=== PATIENT | female | born 1990 | race Caucasian/White ===

== ENCOUNTER → 2017-04-25 18:27 | Outpatient (CLI) | payer OTHER, SELFPAY ==
[2017-04-25 21:31] LABS: Chlamydia Trachomatis by PCR Negative (Negative); Neisserai gonorrhoeae by PCR Negative (Negative); Probe Check PASS; Sample Adequacy Control PASS; Specimen Processing Control PASS
== END ==
PROVIDERS: Visit Provider Obstetrics & Gynecology
DX: Z34.90 Encounter for supervision of normal pregnancy, unspecified, unspecified trimester (principal)
CPT/HCPCS: 87086; 87088; 87491; 87591

== ENCOUNTER → 2017-04-27 10:36 | Outpatient (CLI) | payer OTHER, SELFPAY ==
[2017-04-27 11:26] LABS: Absolute Lymphocyte Count 1.67 X10^3/ul (0.83-4.51); Absolute Neutrophil Count 4.8 X10^3/uL (2.0-7.7); Basophil# 0.01 X10^3/uL; Basophil% 0.1 % (0-1); Eosinophil# 0.04 X10^3/uL; Eosinophils% 0.6 % (0-5); Hematocrit 39.9 % (37-47); Hemoglobin 13.5 g/dl (12.0-15.0); Lymphocyte # 1.67 X10^3/ul (4.0); Lymphocyte % 23.9 % (19-41); Mean Corp Hgb Conc 33.8 g/gl (32-36); Mean Corpuscular Hgb 29.3 pg (27.0-32.0); Mean Corpuscular Volume 86.6 fL (81-99); Mean Platelet Vol. 10.8 fl (6.2-12.0); Monocyte# 0.46 X10^3/uL; Monocyte% 6.6 % (0-10); Neutrophil # 4.79 X10^3/uL (2.7-7.7); Neutrophil % 68.7 % (47-70); Platelet Count 209 K/mm3 (150-450); RBC Distribution Width CV 12.4 % (11.6-14.6); RBC Distribution Width SD 38.8 fl (35.1-43.9); Red Blood Count 4.61 M/mm3 (4.2-5.4)
[2017-04-27 11:27] LABS: POSITIVE COUNT NO; POSITIVE DIFFERENTIAL NO; POSITIVE MORPHOLOGY NO
[2017-04-27 12:41] LABS: HIV - WCH Non-Reactive (Nonreactive); Rubella IgG 376.1 IU/mL
[2017-04-29 08:52] LABS: HEPATITIS B SURFACE AG Negative (Negative)
[2017-05-04 02:54] LABS: Rapid Plasmin Reagin (RPR) NONREACTIVE (NONREACTIVE)
== END ==
PROVIDERS: Family Provider Family Medicine; PCP Family Medicine; Visit Provider Obstetrics & Gynecology
DX: Z34.90 Encounter for supervision of normal pregnancy, unspecified, unspecified trimester (principal)
CPT/HCPCS: 36415; 85025; 86592; 86703; 86762; 86850; 86900; 87340

== ENCOUNTER → 2017-07-06 18:20 | Outpatient (CLI) | payer OTHER, SELFPAY ==
--- NOTE | 2017-07-06 18:24 | US_ITS ---
STUDY: SECOND AND THIRD TRIMESTER OBSTETRICAL ULTRASOUND REASON FOR EXAM: Female, 26 years old. anatomy. LMP: 02/22/2017 TECHNIQUE: Transabdominal PRIOR ULTRASOUND: None. FINDINGS: There is a single intrauterine fetus. The fetus is in a cephalic presentation. There is demonstrated cardiac activity with a heart rate of 153 bpm. There is a normal amniotic fluid volume. The largest amniotic fluid pocket measures 5.8 x 3.5 cm. The placenta is posterior and not low lying. There are Grade 0 placental changes. The cervix measures 3.1 cm in length. The adnexal regions are not visualized. BIOMETRY: BPD: 4.4 cm: 19 weeks, 3 days HC: 16.1 cm: 19 weeks, 0 days AC: 13.9 cm: 18 weeks, 5 days FL: 2.7 cm: 18 weeks, 4 days CI: 84 FL/AC: 21 HC/AC: 1.23 age by current US: 19 weeks, 0 days. JASBIR by current US: 11/30/2017. Estimated weight: 250 grams, +/- 37 grams, 20 %. Age by LMP: 19 weeks, 1 days. JASBIR by LMP: 11/29/2017. ANATOMY: Gender: Male Cranium: Normal lateral ventricles. Normal choroid plexus. Normal cerebellum. Normal cisterna magna. Normal face, nose and lips. Chest: Normal 4-chamber heart. Echogenic focus. Abdomen/Pelvis: Normal diaphragm. Normal stomach. Normal abdominal wall. Normal cord insertion. Normal 3 vessel cord. Normal kidneys. Normal bladder. Spine: Normal cervical spine. Normal thoracic spine. Normal lumbar spine. Normal sacrum. Extremities: Normal bilateral upper extremities. Normal bilateral lower extremities. US/OB Anatomy Scan IMPRESSION: Single living male intrauterine fetus of 19 weeks and 0 days with an JASBIR of 11/30/2017. Normal quantity of amniotic fluid. Grade 0 posterior and not low lying placenta. Cervical length of 3.1 cm. A small echogenic focus of the heart usually a transient finding of no significance. Otherwise, normal anatomy. Electronically Signed: Anayeli Bergman MD at 20:52 EDT , Service support ,
== END ==
PROVIDERS: Family Provider Family Medicine; PCP Family Medicine; Visit Provider Obstetrics & Gynecology
DX: Z34.90 Encounter for supervision of normal pregnancy, unspecified, unspecified trimester (principal)
CPT/HCPCS: 76805

== ENCOUNTER → 2017-09-10 15:25 | Outpatient (CLI) | payer OTHER, SELFPAY ==
[2017-09-10 16:43] LABS: Absolute Lymphocyte Count 1.68 X10^3/ul (0.83-4.51); Absolute Neutrophil Count 6.9 X10^3/uL (2.0-7.7); Basophil# 0.01 X10^3/uL; Basophil% 0.1 % (0-1); Eosinophil# 0.06 X10^3/uL; Eosinophils% 0.7 % (0-5); Hematocrit 35.7 % (37-47); Hemoglobin 12.2 g/dl (12.0-15.0); Lymphocyte # 1.68 X10^3/ul (4.0); Lymphocyte % 18.3 % (19-41); Mean Corp Hgb Conc 34.2 g/gl (32-36); Mean Corpuscular Hgb 30.2 pg (27.0-32.0); Mean Corpuscular Volume 88.4 fL (81-99); Mean Platelet Vol. 11.2 fl (6.2-12.0); Monocyte% 5.4 % (0-10); Neutrophil # 6.93 X10^3/uL (2.7-7.7); Neutrophil % 75.3 % (47-70); Platelet Count 178 K/mm3 (150-450); RBC Distribution Width CV 12.8 % (11.6-14.6); RBC Distribution Width SD 40.3 fl (35.1-43.9); Red Blood Count 4.04 M/mm3 (4.2-5.4); White Blood Count 9.2 K/mm3 (4.4-11.0)
[2017-09-10 16:45] LABS: POSITIVE COUNT NO; POSITIVE DIFFERENTIAL NO; POSITIVE MORPHOLOGY NO
[2017-09-10 16:52] LABS: Glucose Challenge Gest 1H 50g 136 mg/dL (70-140)
== END ==
PROVIDERS: Family Provider Family Medicine; PCP Family Medicine; Visit Provider Obstetrics & Gynecology
DX: Z34.90 Encounter for supervision of normal pregnancy, unspecified, unspecified trimester (principal)
CPT/HCPCS: 36415; 82950; 85025

== ENCOUNTER → 2017-09-14 09:49 | Outpatient (CLI) | payer OTHER, SELFPAY ==
[2017-09-14 11:08] LABS: Glucose GTT-Gestation. Fasting 69 mg/dL (<105)
[2017-09-14 12:39] LABS: Glucose GTT-Gestational 1 Hr 142 mg/dL (<190)
[2017-09-14 13:01] LABS: Glucose GTT-Gestational 2 Hr 139 mg/dL (<165)
[2017-09-14 14:05] LABS: Glucose GTT-Gestational 3 Hr 103 L (<145)
== END ==
PROVIDERS: Nurse Practitioner Women's Health; Family Provider Family Medicine; PCP Family Medicine; Visit Provider Obstetrics & Gynecology
DX: O99.810 Abnormal glucose complicating pregnancy (principal); Z3A.00 Weeks of gestation of pregnancy not specified
CPT/HCPCS: 36415; 82951; 82952

== ENCOUNTER 2017-11-16 09:41 | Outpatient (CLI) | payer OTHER, SELFPAY ==
[2017-11-16 10:18] VITALS: BMI 39.6
[2017-11-16] MEDS: 0.9% Saline Lock 10 ML Syringe IV (10:40)
[2017-11-16 10:55] LABS: Hematocrit 38.2 % (37-47); Hemoglobin 12.5 g/dl (12.0-15.0); Mean Corp Hgb Conc 32.7 g/gl (32-36); Mean Corpuscular Hgb 28.3 pg (27.0-32.0); Mean Corpuscular Volume 86.4 fL (81-99); Mean Platelet Vol. 11.2 fl (6.2-12.0); Platelet Count 178 K/mm3 (150-450); RBC Distribution Width CV 12.7 % (11.6-14.6); RBC Distribution Width SD 40.3 fl (35.1-43.9); Red Blood Count 4.42 M/mm3 (4.2-5.4); White Blood Count 8.7 K/mm3 (4.4-11.0)
[2017-11-16 10:56] LABS: Scan Indicated on CBC? Y/N NO
[2017-11-16 11:26] LABS: Partial Thromboplast Time 25.8 Seconds (24.1-36.2); Prothrombin Time (Protime)PT. 12.7 SECONDS (11.7-14.9)
[2017-11-16 11:37] LABS: AST(SGOT) 13 U/L (15-37); Alanine Aminotransfer ALT/SGPT 16 U/L (13-56); Creatinine, Serum 0.58 mg/dL (0.55-1.02); EST Glomerular Filtration Rate 131 mL/min (>60); Est Glom Filt Rate - Afr Amer 159 mL/min (>60); Uric Acid 4.1 mg/dL (2.6-6.0)
[2017-11-16 12:05] LABS: Protein, Urine (Random) < 6.0 mg/dL (<11.9)
--- NOTE | 2017-11-22 20:32 | OB.TRI.NOTE ---
- Problem List (1) False labor Status: Acute History of Present Illness Date of Service: 11/16/17 Reason For Visit: INT ORDERS Date of Service: 11/16/17 History of Present Illness: co ctx Allergies No Known Allergies Allergy (Verified 11/16/17 10:19) - Pertinent Past Medical History Surgical History: Past Surgical History (Last Reviewed 11/16/17 @ 08:52 by Rajni Thomas) wisdom teeth NST - FHR Rate Baby A Baseline: 140 Variability:: Moderate Accelerations:: 15 x 15 Decelerations:: None NST Reactive:: Yes FHR Category:: Category I Uterine Activity:: Irregular Impression/Plan False labor no cervical change DC home labor precautions
== END 2017-11-16 12:35 | disposition home or self-care (01) ==
LOC: WPOUT 09:43 → WP 10:17
PROVIDERS: Family Provider Family Medicine; PCP Family Medicine; Visit Provider Obstetrics & Gynecology
DX: O47.9 False labor, unspecified (principal); Z3A.00 Weeks of gestation of pregnancy not specified
CPT/HCPCS: 36415; 59025; 59050; 82565; 82570; 84156; 84450; 84460; 84550; 85027; 85610; 85730; 99218; A4216; G0378

== ENCOUNTER → 2017-11-16 14:52 | Outpatient (CLI) | payer OTHER, SELFPAY ==
[2017-11-16 17:13] LABS: Group B Strep DNA By PCR Negative (Negative); Internal Control PASS; Probe Check PASS; Specimen Processing Control PASS
== END ==
PROVIDERS: Visit Provider Obstetrics & Gynecology
DX: Z34.90 Encounter for supervision of normal pregnancy, unspecified, unspecified trimester (principal)
CPT/HCPCS: 87081; 87653

== ENCOUNTER → 2017-11-23 12:45 | Outpatient (CLI) | payer OTHER, SELFPAY ==
[2017-11-23 13:36] LABS: Protein, Urine (Random) 18.8 mg/dL (<11.9); Protein:Creat Ratio 113 mg/g CRE (0-200)
== END ==
PROVIDERS: Family Provider Family Medicine; PCP Family Medicine; Visit Provider Nurse Practitioner Women's Health
DX: O16.3 Unspecified maternal hypertension, third trimester (principal); Z3A.00 Weeks of gestation of pregnancy not specified
CPT/HCPCS: 82570; 84156

== ENCOUNTER 2017-11-30 13:55 | Inpatient (IN) | payer OTHER, SELFPAY ==
[2017-11-30 10:32] VITALS: BMI 40.3
[2017-11-30 11:07] LABS: Protein, Urine (Random) 15.2 mg/dL (<11.9); Protein:Creat Ratio 148 mg/g CRE (0-200)
[2017-11-30] MEDS: Lactated Ringers 1,000 ML 50 ML IV (11:20)
[2017-11-30 11:41] LABS: Hemoglobin 12.5 g/dl (12.0-15.0); Mean Corp Hgb Conc 33.8 g/gl (32-36); Mean Corpuscular Hgb 29.1 pg (27.0-32.0); Mean Platelet Vol. 11.5 fl (6.2-12.0); Platelet Count 171 K/mm3 (150-450); RBC Distribution Width CV 12.8 % (11.6-14.6); RBC Distribution Width SD 39.3 fl (35.1-43.9); Scan Indicated on CBC? Y/N NO; White Blood Count 9.1 K/mm3 (4.4-11.0)
[2017-11-30 11:55] LABS: International Normalized Ratio 0.9; Prothrombin Time (Protime)PT. 12.6 SECONDS (11.7-14.9)
[2017-11-30 11:56] LABS: Partial Thromboplast Time 24.3 Seconds (24.1-36.2)
[2017-11-30 11:58] LABS: AST(SGOT) 18 U/L (15-37); Alanine Aminotransfer ALT/SGPT 16 U/L (13-56); Creatinine, Serum 0.63 mg/dL (0.55-1.02); EST Glomerular Filtration Rate 120 mL/min (>60); Est Glom Filt Rate - Afr Amer 145 mL/min (>60); Uric Acid 4.7 mg/dL (2.6-6.0)
[2017-11-30] MEDS: 0.9% Normal Saline 100 ML IV.SOLN. INTRA-UTER (15:35)
[2017-11-30] MEDS: Oxytocin 30 units/NS 500 ml 30 UNITS/500 ML IV.SOLN IV (15:37)
--- NOTE | 2017-11-30 19:03 | HP.PCM_ITS ---
- Problem List (1) Gestational hypertension Status: Acute (2) Status: Acute Qualifiers: Comment: (3) Abnormal glucose complicating childbirth Status: Acute Comment: Normal 3 hr GTT, Needs GBS at next appt. (4) Echogenic focus of heart of fetus affecting antepartum care of mother Status: Acute Qualifiers: Comment: offered NIPT screening - declined (5) Supervision of normal Status: Acute Qualifiers: Comment: PRR JASBIR 11/29/17 boy David Sushil History Date of Admission: 11/30/17 Final JASBIR: 11/29/17 Gestational age: 40 Weeks and 1 Days History of this : This is a 27 year-old, at 40 weeks gestational age presents for IOL secondary to gestational hypertension. she had elevated bps in the office today but negative proteinuria and she is asymptomatic. she denies any vb or lof, admits good fm. She denies any regualr ctx, no headaches or blurry vision. Surgical History: Surgical History (Last Reviewed 11/30/17 @ 09:16 by Rajni Thomas) wisdom teeth Allergies No Known Allergies Allergy (Verified 11/30/17 09:17) Home Medications: Home Medications vitamin,calcium,hfpwctqs-nugp-wnzgk acid tablet 2 tab PO QDAY 04/25/17 Smoking Status: Never smoker Alcohol: None Number of Fetus(es): 1 Heart Tracin mod gillian reactive no decels cat I TOCO Analysis: irregular History Past Pregnancies: Past Pregnancies Delivery Date Name GA/Weeks Outcome Route Weight Infant Gender Labor Length Anesthesia Delivery Location Provider FOB Labs: Mom's Problem List Problem Status Onset Code Gestational hypertension Acute O13.9 Mom's Labs & Results 11/30/17 11/30/17 11/30/17 10:30 11:20 11:20 WBC 9.1 RBC 4.30 Hgb 12.5 Hct 37.0 MCV 86.0 MCH 29.1 MCHC 33.8 RDW 12.8 RDW Differential 39.3 Plt Count 171 MPV 11.5 PT INR APTT Creatinine 0.63 Estim Creat Clear Calc 120.70 Est GFR (MDRD) Af Amer 145 Est GFR (MDRD) Non-Af 120 Uric Acid 4.7 AST 18 ALT 16 U Random Total Protein 15.2 H Urine Creatinine 103.00 Protein/Creatinin Ratio 148 Blood Type Antibody Screen 11/30/17 11/30/17 11:20 11:35 WBC RBC Hgb Hct MCV MCH MCHC RDW RDW Differential Plt Count MPV PT 12.6 INR 0.9 APTT 24.3 Creatinine Estim Creat Clear Calc Est GFR (MDRD) Af Amer Est GFR (MDRD) Non-Af Uric Acid AST ALT U Random Total Protein Urine Creatinine Protein/Creatinin Ratio Blood Type A POSITIVE Antibody Screen NEGATIVE Course Did the patient receive Yes care? Labs Blood Type: A RH: POSITIVE RPR/VDRL/Syphilis Nonreactive Rubella status Immune HbSAg Negative Date Done: 04/27/17 Chlamydia Negative Gonorrhea Negative HIV/AIDS Non-Reactive Group B Strep: Negative Current Obstetrical History Gestational Diabetes No: abnormal 1 hr gtt, normal 3 hr gtt Incompetent Cervix No Infertility No IUGR No Macrosomia No Hypertension/Pre-eclampsia Yes Placenta Previa/Abruption No PTL/PROM No Uterine anomaly No Oligohydramnios No Polyhydramnios No Multiple gestation No Past Medical History Asthma No Diabetes No Hypertension No Heart disease No Mitral valve prolapse No Neurologic/Seizure disorder/ No Migraines Kidney disease No Liver disease No Varicosities No Clotting disorders/Hx of DVT No Thyroid Dysfunction No Other medical diseases No Psychiatric disorders No Major trauma No Abnormal PAP smear No Sleep apnea No Mammogram in the last 2 years No Social History Marital Status: Alleged father Sushil Jim Hx Smoking No Smoking Status Never smoker Expected Infant Delivery Method: Spontaneous Vaginal Review of Systems Constitutional: Denies: Fever, Malaise Eyes: Denies: Blurred vision, Vision Change HEENT: Denies: Head Aches, Visual Changes Cardiovascular: Denies: Chest Pain, Palpitations Respiratory: Denies: Cough, Shortness of Breath, Wheezing Gastrointestinal: Denies: Abdominal Pain, Diarrhea, Nausea, Vomiting Genitourinary: Denies: Dysuria, Hematuria Musculoskeletal: Denies: Joint Pain, Muscle pain Skin: Denies: Lesions, Rash Neurological: Denies: Blurred vision, Focal weakness, Headaches Psychiatric: Denies: Anxiety, Depression Endocrine: Denies: Heat/ Cold Intolerance Hematologic/ Lymphatic: Denies: Easy Bruising, Easy Bleeding Physical Exam General: Alert, Cooperative, No apparent distress HEENT: Atraumatic, Normocephalic. Negative for: Thyromegaly, Lymphadenopathy Cardiovascular: Regular rate Lungs: Normal air movement Abdomen: Soft, Non Tender, Gravid Neurological: Deep Tendon Reflexes 2+/4 and Symmetrical, Neuro grossly intact. Negative for: Clonus LEASE ADMINISTRATION ANALYST: Normal external genitalia. Negative for: Vulvar lesions Estimated gestational size: Appropriate for gestational size Presentation: Cephalic Assessment/Plan All Active Problems (Last Reviewed 11/30/17 @ 09:16 by Rajni Thomas) False labor (Acute) Gestational hypertension (Acute) (Acute) Abnormal glucose complicating childbirth (Acute) Echogenic focus of heart of fetus affecting antepartum care of mother (Acute) Supervision of normal (Acute) This is a 27 year-old, at 40 weeks gestational age presents iol gestational hypertension Patient presents IOL, plan expectant management for , pitocin/AROM PRN when able Pain management: plans epidural. GBS neg. Management of any complications: ghtn I have reviewed the [facility] and made any clinically relevant updates.
[2017-12-01] MEDS: Lactated Ringers 1,000 ML 50 ML IV ×3 (00:20→06:16)
[2017-12-01] MEDS: fentaNYL-bupivacaine (epidural) 100 ML BAG EPIDURAL ×2 (01:09→06:13)
[2017-12-01] MEDS: Ondansetron 4 MG/2 ML Vial IV (08:24)
[2017-12-01] MEDS: Oxytocin 30 units/NS 500 ml 30 UNITS/500 ML IV.SOLN 334 UNITS IV (09:22)
[2017-12-01] MEDS: Oxytocin 30 units/NS 500 ml 30 UNITS/500 ML IV.SOLN 167 UNITS IV (09:52)
--- NOTE | 2017-12-01 11:56 | PCM.OB.VAG ---
- Problem List (1) Gestational hypertension Status: Acute (2) Status: Acute Qualifiers: Comment: (3) Abnormal glucose complicating childbirth Status: Acute Comment: Normal 3 hr GTT, Needs GBS at next appt. (4) Echogenic focus of heart of fetus affecting antepartum care of mother Status: Acute Qualifiers: Comment: offered NIPT screening - declined (5) Supervision of normal Status: Acute Qualifiers: Comment: PRR JASBIR 11/29/17 boy David Sushil Vaginal Delivery Maternal Presentation: Medically Indicated Induction iol ghtn Method of Induction: Pitocin, [facility] Reason for Induction: Gestational Hypertension Amniotic Membrane Rupture Type: Artificial Amniotic Fluid Description: Clear Final JASBIR: 11/29/17 Gestational age: 40 Weeks and 2 Days Date of Procedure: 12/01/17 Pre-Operative Diagnosis: iol ghtn Post-Operative Diagnosis: same Surgery/ Procedure Performed: Spontaneous Vaginal Delivery Type of Anesthesia: Epidural Description of Procedure: Patient began pushing and delivered the head in the YARA presentation. The head was delivered atraumatically and a loose nuchal cord ?1 was identified and easily reduced over the infant's head. The anterior and posterior shoulders delivered without complication followed by the rest of the and the infant was placed on the maternal abdomen. Delayed cord clamping was employed for approximately 60 seconds. Cord was clamped and cut and gentle traction was applied to the cord and the placenta delivered spontaneously immediately following it was noted to be intact with three-vessel cord. The perineum and vagina were inspected and noted to have a first degree laceration repaired in the usual fashion with 3-0 rapide. EBL was 300 cc. Patient and tolerated delivery well. Presentation: LIDYA, ROP Placental Delivery Description: Spontaneous Placenta Disposition: [facility] Cord Vessel Description: 3 Vessels Cord Entanglement: Around neck x 1, loose Estimated Blood Loss: 300 A gender: Male Episiotomy Description: None Laceration: Perineal Extension/lac, 1st degree Medications given after delivery: IV Pitocin Complications: None
[2017-12-01] MEDS: Naproxen 250 MG Tablet PO (15:15)
[2017-12-01] MEDS: 0.9% Saline Lock 10 ML Syringe IV (15:16)
--- NOTE | 2017-12-01 15:28 | NURSING ---
1500 Up to the bathroom with assistance, normal gait, steady on feet. Voids 300ml, lochia mod rubra. Perineum remains edematous, soft. New ice pack applied. Shannon care done per patient after instructions. Returns to wheelchair and transferred to 5. Tolerated well.
[2017-12-01 16:00] VITALS: BP 141/85; PULSE 99; RESP 16; TEMP 37.3
[2017-12-01 20:53] VITALS: BP 121/65; PULSE 99; RESP 18; TEMP 37.1; O2SAT 97
[2017-12-01 23:50] VITALS: BP 130/67; PULSE 90; RESP 16; TEMP 37.2; O2SAT 96
--- NOTE | 2017-12-02 03:37 | PCM.DCVAG ---
Discharge Diet: No Restrictions Discharge Activity: Return to Normal Activity, May not drive while taking narcotic pain medications., May Shower May resume sexual activity in: 4-6 weeks Call your doctor if your incision/area has: Continuous Slow Oozing, Sudden Increased Bleeding, Increased Pain/ Swelling, Increased Redness, Foul Smelling Discharge Additional Instructions: If you experience any of the following, contact your healthcare provider. Bleeding that soaks a pad every hour for 2 hours Fever 100.4 or higher Unrelieved incision or abdominal pain Swelling, redness, discharge or bleeding from your incision or episiotomy site Your incision begins to separate Problems urinating (including inability to urinate or burning while urinating). Visual changes Severe headache Flu-like symptoms Pain or redness in one of both of your breasts Pain, warmth, tenderness or swelling in your legs, especially the calf area Frequent nausea and vomiting Symptoms of depression or anxiety If you experience any of the following, call 911 or go to the nearest Emergency Room. Chest pain Problems breathing Seizure activity Partial or complete paralysis of a body part, slurred speech, weakness or drooping of the face, or a sudden inability to walk or hold your balance Allergies/Adverse Reactions: Allergies No Known Allergies Allergy (Verified 11/30/17 09:17) Medications to take at Discharge vitamin,calcium,wvpkxzsd-nhxh-zrqcv acid tablet 2 tab PO QDAY 04/25/17 Please Follow Up With: Shira Garrido MD - [phone] When: Call to make an appointment with your doctor in 6 weeks. If you had elevated Blood pressure or 4th degree laceration you will need to be seen in 2 weeks. Primary Care Physician: Kaley Cole DO [Primary Care Provider] - Test Results: Test results from this visit will be discussed in further detail at your follow-up appointment, if applicable.
--- NOTE | 2017-12-02 03:38 | DCINST_ITS ---
Discharge Diet: No Restrictions Discharge Activity: Return to Normal Activity, May not drive while taking narcotic pain medications., May Shower May resume sexual activity in: 4-6 weeks Call your doctor if your incision/area has: Continuous Slow Oozing, Sudden Increased Bleeding, Increased Pain/ Swelling, Increased Redness, Foul Smelling Discharge Additional Instructions: If you experience any of the following, contact your healthcare provider. * Bleeding that soaks a pad every hour for 2 hours * Fever 100.4 or higher * Unrelieved incision or abdominal pain * Swelling, redness, discharge or bleeding from your incision or episiotomy site * Your incision begins to separate * Problems urinating (including inability to urinate or burning while urinating). * Visual changes * Severe headache * Flu-like symptoms * Pain or redness in one of both of your breasts * Pain, warmth, tenderness or swelling in your legs, especially the calf area * Frequent nausea and vomiting * Symptoms of depression or anxiety If you experience any of the following, call 911 or go to the nearest Emergency Room. * Chest pain * Problems breathing * Seizure activity * Partial or complete paralysis of a body part, slurred speech, weakness or drooping of the face, or a sudden inability to walk or hold your balance Allergies/Adverse Reactions: Allergies No Known Allergies Allergy (Verified 11/30/17 09:17) Medications to take at Discharge vitamin,calcium,szjwicmi-axba-vvrcq acid tablet 2 tab PO QDAY 04/25/17 Please Follow Up With: Shira Garrido MD - [phone] When: Call to make an appointment with your doctor in 6 weeks. If you had elevated Blood pressure or 4th degree laceration you will need to be seen in 2 weeks. Primary Care Physician: Kaley Cole DO [Primary Care Provider] - Test Results: Test results from this visit will be discussed in further detail at your follow- up appointment, if applicable.
[2017-12-02 04:35] VITALS: BP 138/88; PULSE 89; RESP 18; TEMP 36.8; O2SAT 94
--- NOTE | 2017-12-02 07:28 | PCM.PN.OB ---
Patient Problems: Active and Suspected Problems (Last Reviewed 11/30/17 @ 09:16 by Rajni Thomas) Gestational hypertension (Acute) Subjective: doing well no ocmplaints - Physical Exam General: Alert, Oriented x3 Vital Signs Temp Pulse Resp BP Pulse Ox 98.3 F 89 18 138/88 H 94 12/02/17 04:35 12/02/17 04:35 12/02/17 04:35 12/02/17 04:35 12/02/17 04:35 Oxygen Delivery Method Room Air Weight: 242 lb 4.608 oz Body Mass Index (BMI) 40.3 Intake and Output for Last 24 Hours 11/30/17 12/01/17 12/02/17 23:59 23:59 23:59 Intake Total 1055 / 1055 Output Total 775 / 775 1000 / 1000 Balance 280 / 280 -1000 / -1000 Medical Necessity - Tobacco Use Smoking Status: Never smoker Assessment/Plan All Active Problems (Last Reviewed 11/30/17 @ 09:16 by Rajni Thomas) False labor (Acute) Gestational hypertension (Acute) (Acute) Abnormal glucose complicating childbirth (Acute) Echogenic focus of heart of fetus affecting antepartum care of mother (Acute) Supervision of normal (Acute) s/p routine care ghtn nl bps
[2017-12-02 08:20] VITALS: BP 137/90; PULSE 95; RESP 16; TEMP 36.9; O2SAT 98
[2017-12-02] MEDS: Naproxen 250 MG Tablet PO (09:55)
[2017-12-02] MEDS: Prenatal Vits Tablet 2 TABLET PO (09:56)
[2017-12-02 13:24] VITALS: BP 120/84; PULSE 79; RESP 18; TEMP 36.9; O2SAT 99
[2017-12-02 19:45] VITALS: BP 143/83; PULSE 85; RESP 18; TEMP 36.5
[2017-12-03 02:00] VITALS: BP 150/87; PULSE 89; RESP 17; TEMP 36.7
--- NOTE | 2017-12-03 08:12 | PCM.PN.OB ---
Patient Problems: Active and Suspected Problems (Last Reviewed 11/30/17 @ 09:16 by Rajni Thomas) Gestational hypertension (Acute) Subjective: Doing well. No CP, SOB. - Physical Exam General: Alert, Oriented x3 Abdomen: Soft, Non Tender, - - FF below U Vital Signs Temp Pulse Resp BP Pulse Ox 98.0 F 89 17 150/87 H 99 12/03/17 02:00 12/03/17 02:00 12/03/17 02:00 12/03/17 02:00 12/02/17 13:24 Oxygen Delivery Method Room Air Weight: 242 lb 4.608 oz Body Mass Index (BMI) 40.3 Intake and Output for Last 24 Hours 12/01/17 12/02/17 12/03/17 23:59 23:59 23:59 Output Total 1000 / 1000 Balance -1000 / -1000 Medical Necessity - Tobacco Use Smoking Status: Never smoker Assessment/Plan All Active Problems (Last Reviewed 11/30/17 @ 09:16 by Rajni Thomas) False labor (Acute) Gestational hypertension (Acute) (Acute) Abnormal glucose complicating childbirth (Acute) Echogenic focus of heart of fetus affecting antepartum care of mother (Acute) Supervision of normal (Acute) PPD#2: Routine care. . Home today.
[2017-12-03 09:00] VITALS: BP 126/83; PULSE 80; RESP 16; TEMP 36.8; O2SAT 98
[2017-12-03 13:20] VITALS: BP 126/93; PULSE 96; RESP 16; TEMP 36.7; O2SAT 93
== END 2017-12-03 13:30 | disposition home or self-care (01) | DRG 775 ==
LOC: WPOUT 13:57
PROVIDERS: Admitting Provider Obstetrics & Gynecology; Family Provider Family Medicine; PCP Family Medicine; Referring Provider Obstetrics & Gynecology; Visit Provider Obstetrics & Gynecology
DX: O13.4 Gestational [pregnancy-induced] hypertension without significant proteinuria, complicating childbirth (principal); O99.814 Abnormal glucose complicating childbirth; Z37.0 Single live birth; Z3A.40 40 weeks gestation of pregnancy; O69.81X0 Labor and delivery complicated by cord around neck, without compression, not applicable or unspecified; O70.0 First degree perineal laceration during delivery
CPT/HCPCS: 59025; 59050; 82565; 82570; 84156; 84450; 84460; 84550; 85027; 85610; 85730; 86850; 86900; 99218; J7120; 90686; A4216; G0378; J2405

== ENCOUNTER → 2017-12-08 14:58 | Outpatient (CLI) | payer OTHER, SELFPAY | PROVIDERS: Family Provider Family Medicine; PCP Family Medicine; Referring Provider Physician Assistant; Visit Provider Physician Assistant | DX: R21 Rash and other nonspecific skin eruption (principal) | CPT/HCPCS: 87252 ==

== ENCOUNTER → 2019-12-31 10:05 | Outpatient (CLI) | payer BC, SELFPAY ==
[2019-12-31 09:08] VITALS: BMI 33.1
[2019-12-31 10:49] LABS: Absolute Lymphocyte Count 1.32 X10^3/uL (0.83-4.51); Absolute Neutrophil Count 5.6 X10^3/uL (2.0-7.7); Basophil# 0.01 X10^3/uL; Basophil% 0.1 % (0-1); Eosinophil# 0.02 X10^3/uL; Eosinophils% 0.3 % (0-5); Hematocrit 39.5 % (37-47); Hemoglobin 12.7 g/dL (12.0-15.0); Lymphocyte # 1.32 X10^3/ul (4.0); Lymphocyte % 17.8 % (19-41); Mean Corp Hgb Conc 32.2 g/dL (32-36); Mean Corpuscular Hgb 28.8 pg (27.0-32.0); Mean Corpuscular Volume 89.6 fL (81-99); Mean Platelet Vol. 10.7 fl (6.2-12.0); Monocyte# 0.42 X10^3/uL; Monocyte% 5.7 % (0-10); NRBC Flagged by Analyzer 0 % (0-5); Neutrophil # 5.61 X10^3/uL (2.7-7.7); Neutrophil % 75.8 % (47-70); Platelet Count 204 K/mm3 (150-450); RBC Distribution Width CV 12.2 % (11.6-14.6); RBC Distribution Width SD 40.4 fl (35.1-43.9); Red Blood Count 4.41 M/mm3 (4.2-5.4); White Blood Count 7.4 K/mm3 (4.4-11.0)
[2019-12-31 11:25] LABS: ALB/GLOB Ratio 0.9 RATIO (0.9-2.4); AST(SGOT) 11 U/L (15-37); Alanine Aminotransfer ALT/SGPT 20 U/L (13-56); Albumin, Serum 3.5 g/dL (3.2-5.0); Alkaline Phosphatase 80 U/L (45-117); Anion Gap 5 (5-15); BUN 8 mg/dL (7-18); BUN/Creat Ratio 12.2 RATIO (10-20); Calcium,Total 8.8 mg/dL (8.5-10.1); Chloride 105 mmol/L (98-107); Creatinine, Serum 0.66 mg/dL (0.55-1.02); EST Glomerular Filtration Rate 113 mL/min (>60); Est Glom Filt Rate - Afr Amer 137 mL/min (>60); Globulin 4.1 g/dL (2.2-4.2); Glucose 99 mg/dL (74-106); Glucose Challenge Gest 1H 50g 99 mg/dL (70-140); Potassium 3.6 mmol/L (3.5-5.1); Protein, Total 7.6 g/dL (6.4-8.2); Sodium Level 137 mmol/L (136-145)
[2019-12-31 12:01] LABS: HIV - WCH Non-Reactive (Nonreactive); Hepatitis B Surface Antigen Non-Reactive (Nonreactive); Hepatitis C Antibody Non-Reactive (Nonreactive)
[2019-12-31 15:43] LABS: Protein, Urine (Random) 15.5 mg/dL (<11.9); Protein:Creat Ratio 138 mg/g CRE (0-200)
[2019-12-31 16:15] LABS: Amphetamine Urine VISTA NEGATIVE (<1000 ng/mL); Barbiturate Urine VISTA NEGATIVE (< 200 ng/mL); Benzodiazepine Urine VISTA NEGATIVE (< 200 ng/mL); Cocaine Urine VISTA NEGATIVE (< 300 ng/mL); Ecstacy Urine VISTA NEGATIVE (< 500 ng/mL); Methadone Urine VISTA NEGATIVE (< 300 ng/mL); PCP Urine VISTA NEGATIVE (< 25 ng/mL); THC Urine VISTA NEGATIVE (< 50 ng/mL); Vista UDS pH Range 7
[2020-01-01 01:11] LABS: Rapid Plasmin Reagin (RPR) NONREACTIVE (NONREACTIVE)
[2020-01-03 20:07] LABS: Chlamydia By Nucleic Acid AMP Negative (Negative)
[2020-01-03 21:09] LABS: Gonococcus By Nucleic Acid AMP Negative (Negative)
[2020-01-06 14:41] LABS: HPV Reflexed? NOT INDICATED
== END ==
PROVIDERS: PCP Family Medicine; Referring Provider Obstetrics & Gynecology; Visit Provider Obstetrics & Gynecology
DX: O09.90 Supervision of high risk pregnancy, unspecified, unspecified trimester (principal); O99.210 Obesity complicating pregnancy, unspecified trimester; E66.9 Obesity, unspecified; Z87.59 Personal history of other complications of pregnancy, childbirth and the puerperium; Z12.4 Encounter for screening for malignant neoplasm of cervix; Z3A.00 Weeks of gestation of pregnancy not specified
CPT/HCPCS: 36415; 80053; 80307; 82570; 82950; 84156; 85025; 86592; 86703; 86762; 86803; 86850; 86900; 86901; 87086; 87088; 87340; 87491; 87591; 88175; G0145

== ENCOUNTER → 2020-05-21 08:12 | Outpatient (CLI) | payer BC, SELFPAY ==
[2020-04-22 08:49] VITALS: BMI 37.5
[2020-05-21 08:42] LABS: Absolute Lymphocyte Count 1.55 X10^3/uL (0.83-4.51); Basophil# 0.01 X10^3/uL; Basophil% 0.1 % (0-1); Eosinophil# 0.05 X10^3/uL; Eosinophils% 0.5 % (0-5); Hematocrit 35.9 % (37-47); Hemoglobin 11.7 g/dL (12.0-15.0); Lymphocyte # 1.55 X10^3/ul (4.0); Lymphocyte % 16.8 % (19-41); Mean Corp Hgb Conc 32.6 g/dL (32-36); Mean Corpuscular Hgb 29.1 pg (27.0-32.0); Mean Corpuscular Volume 89.3 fL (81-99); Mean Platelet Vol. 10.5 fl (6.2-12.0); Monocyte% 6.5 % (0-10); NRBC Flagged by Analyzer 0 % (0-5); Neutrophil # 6.98 X10^3/uL (2.7-7.7); Neutrophil % 75.6 % (47-70); Platelet Count 207 K/mm3 (150-450); RBC Distribution Width CV 12.1 % (11.6-14.6); RBC Distribution Width SD 39.5 fl (35.1-43.9); Red Blood Count 4.02 M/mm3 (4.2-5.4); White Blood Count 9.2 K/mm3 (4.4-11.0)
[2020-05-21 09:08] LABS: Glucose Challenge Gest 1H 50g 108 mg/dL (70-140)
== END ==
PROVIDERS: PCP Family Medicine; Referring Provider Obstetrics & Gynecology; Visit Provider Obstetrics & Gynecology
DX: O09.90 Supervision of high risk pregnancy, unspecified, unspecified trimester (principal); Z3A.00 Weeks of gestation of pregnancy not specified
CPT/HCPCS: 36415; 82950; 85025

== ENCOUNTER → 2020-06-03 11:24 | Outpatient (CLI) | payer BC, SELFPAY ==
[2020-06-03 10:57] VITALS: BMI 39.2
[2020-06-03 12:45] LABS: Absolute Lymphocyte Count 1.54 X10^3/uL (0.83-4.51); Absolute Neutrophil Count 7.8 X10^3/uL (2.0-7.7); Basophil# 0.01 X10^3/uL; Basophil% 0.1 % (0-1); Eosinophil# 0.04 X10^3/uL; Eosinophils% 0.4 % (0-5); Hematocrit 36.5 % (37-47); Hemoglobin 11.7 g/dL (12.0-15.0); Lymphocyte # 1.54 X10^3/ul (4.0); Lymphocyte % 15.2 % (19-41); Mean Corp Hgb Conc 32.1 g/dL (32-36); Mean Corpuscular Hgb 28.8 pg (27.0-32.0); Mean Corpuscular Volume 89.9 fL (81-99); Monocyte# 0.63 X10^3/uL; Monocyte% 6.2 % (0-10); NRBC Flagged by Analyzer 0 % (0-5); Neutrophil # 7.83 X10^3/uL (2.7-7.7); Neutrophil % 77.6 % (47-70); Platelet Count 211 K/mm3 (150-450); RBC Distribution Width CV 12.2 % (11.6-14.6); Red Blood Count 4.06 M/mm3 (4.2-5.4); White Blood Count 10.1 K/mm3 (4.4-11.0)
[2020-06-03 13:21] LABS: ALB/GLOB Ratio 0.6 RATIO (0.9-2.4); AST(SGOT) 12 U/L (15-37); Alanine Aminotransfer ALT/SGPT 13 U/L (13-56); Albumin, Serum 2.6 g/dL (3.2-5.0); Alkaline Phosphatase 101 U/L (45-117); Anion Gap 5 (5-15); BUN 11 mg/dL (7-18); BUN/Creat Ratio 20.2 RATIO (10-20); Calcium,Total 8.7 mg/dL (8.5-10.1); Chloride 105 mmol/L (98-107); Creatinine, Serum 0.54 mg/dL (0.55-1.02); EST Glomerular Filtration Rate 140 mL/min (>60); Est Glom Filt Rate - Afr Amer 169 mL/min (>60); Globulin 4.5 g/dL (2.2-4.2); Glucose 75 mg/dL (74-106); Potassium 3.7 mmol/L (3.5-5.1); Protein, Total 7.1 g/dL (6.4-8.2); Sodium Level 135 mmol/L (136-145)
[2020-06-03 13:35] LABS: Protein, Urine (Random) 16.6 mg/dL (<11.9); Protein:Creat Ratio 119 mg/g CRE (0-200)
== END ==
PROVIDERS: PCP Family Medicine; Visit Provider Obstetrics & Gynecology
DX: O16.9 Unspecified maternal hypertension, unspecified trimester (principal); Z3A.00 Weeks of gestation of pregnancy not specified
CPT/HCPCS: 36415; 80053; 82570; 84156; 85025

== ENCOUNTER → 2020-06-11 08:38 | Outpatient (CLI) | payer BC, SELFPAY ==
[2020-06-03 10:57] VITALS: BMI 39.2
--- NOTE | 2020-06-11 09:00 | US_ITS ---
STUDY: SECOND AND THIRD TRIMESTER OBSTETRICAL ULTRASOUND - LIMITED REASON FOR EXAM: Female, 29 years old growth LMP: 10/27/2019 PRIOR ULTRASOUND: None. TECHNIQUE: Transabdominal TECHNICAL QUALITY: Adequate. FINDINGS: There is a single intrauterine fetus. The fetus is in a cephalic presentation. There is demonstrated cardiac activity with a heart rate of 154 bpm. There is a normal amniotic fluid volume. The largest amniotic fluid pocket measures 7.0 cm. The amniotic fluid index (JAIRO) is 16.1 cm. The placenta is anterior in location and is not low lying. There are Grade 0 placental changes. The cervix measures 3.8 cm in length. BIOMETRY: BPD: 7.6 cm: 30 weeks, 2 days HC: 29.0 cm: 32 weeks, 0 days AC: 26.8 cm: 30 weeks, 6 days FL: 5.9 cm: 30 weeks, 5 days Age by LMP: 32 weeks, 4 days. JASBIR by LMP: 08/02/2020. age by current US: 31 weeks, 1 days. JASBIR by current US: 08/12/2020. Estimated weight: 1653 grams, +/- 248 grams, 6 percentile. Gender: US/OB Limited With Biometrics IMPRESSION: Living intrauterine of 31 weeks 1 day as described above. Electronically Signed: Arpan Finch MD at 13:05 EDT Tel , Service support ,
== END ==
PROVIDERS: PCP Family Medicine; Referring Provider Obstetrics & Gynecology; Visit Provider Obstetrics & Gynecology
DX: O10.919 Unspecified pre-existing hypertension complicating pregnancy, unspecified trimester (principal); Z3A.00 Weeks of gestation of pregnancy not specified
CPT/HCPCS: 76816

== ENCOUNTER → 2020-07-06 11:49 | Outpatient (CLI) | payer BC, SELFPAY ==
[2020-07-06 11:24] VITALS: BMI 39.9
[2020-07-06 12:05] LABS: Protein, Urine (Random) 13.6 mg/dL (<11.9); Protein:Creat Ratio 222 mg/g CRE (0-200)
[2020-07-06 13:37] LABS: Absolute Neutrophil Count 7.7 X10^3/uL (2.0-7.7); Basophil# 0.02 X10^3/uL; Basophil% 0.2 % (0-1); Eosinophil# 0.03 X10^3/uL; Eosinophils% 0.3 % (0-5); Hematocrit 36.1 % (37-47); Hemoglobin 11.3 g/dL (12.0-15.0); Lymphocyte % 15.9 % (19-41); Mean Corp Hgb Conc 31.3 g/dL (32-36); Mean Corpuscular Hgb 27.2 pg (27.0-32.0); Mean Platelet Vol. 11.6 fl (6.2-12.0); Monocyte# 0.64 X10^3/uL; Monocyte% 6.4 % (0-10); NRBC Flagged by Analyzer 0 % (0-5); Neutrophil # 7.71 X10^3/uL (2.7-7.7); Neutrophil % 76.6 % (47-70); Platelet Count 205 K/mm3 (150-450); RBC Distribution Width CV 12.3 % (11.6-14.6); RBC Distribution Width SD 39.2 fl (35.1-43.9); Red Blood Count 4.15 M/mm3 (4.2-5.4); White Blood Count 10.1 K/mm3 (4.4-11.0)
[2020-07-06 14:18] LABS: ALB/GLOB Ratio 0.6 RATIO (0.9-2.4); AST(SGOT) 11 U/L (15-37); Alanine Aminotransfer ALT/SGPT 14 U/L (13-56); Albumin, Serum 2.5 g/dL (3.2-5.0); Alkaline Phosphatase 129 U/L (45-117); Anion Gap 5 (5-15); BUN 11 mg/dL (7-18); BUN/Creat Ratio 19.8 RATIO (10-20); Calcium,Total 9.1 mg/dL (8.5-10.1); Chloride 106 mmol/L (98-107); Creatinine, Serum 0.56 mg/dL (0.55-1.02); EST Glomerular Filtration Rate 136 mL/min (>60); Est Glom Filt Rate - Afr Amer 165 mL/min (>60); Globulin 4.5 g/dL (2.2-4.2); Glucose 73 mg/dL (74-106); Potassium 3.7 mmol/L (3.5-5.1); Sodium Level 136 mmol/L (136-145)
== END ==
LOC: LABSPEC 11:49 → LAB 12:00
PROVIDERS: Nurse Practitioner Women's Health; PCP Family Medicine; Referring Provider Obstetrics & Gynecology; Visit Provider Obstetrics & Gynecology
DX: O10.919 Unspecified pre-existing hypertension complicating pregnancy, unspecified trimester (principal); O16.9 Unspecified maternal hypertension, unspecified trimester; Z3A.00 Weeks of gestation of pregnancy not specified
CPT/HCPCS: 36415; 80053; 82570; 84156; 85025

== ENCOUNTER → 2020-07-06 12:35 | Outpatient (CLI) | payer BC, SELFPAY ==
[2020-06-03 10:57] VITALS: BMI 39.2
[2020-07-06 11:24] VITALS: BMI 39.9
--- NOTE | 2020-07-06 12:37 | US_ITS ---
STUDY: SECOND AND THIRD TRIMESTER OBSTETRICAL ULTRASOUND - LIMITED REASON FOR EXAM: Female, 29 years old JAIRO LMP: 10/26/2020. PRIOR ULTRASOUND: Comparison is made with prior study dated 06/11/2020. TECHNIQUE: Transabdominal TECHNICAL QUALITY: Adequate. FINDINGS: There is a single intrauterine fetus. The fetus is in a cephalic presentation. There is demonstrated cardiac activity with a heart rate of 146 bpm. There is a normal amniotic fluid volume. The largest amniotic fluid pocket measures 5.8 cm x 1.1 cm. The amniotic fluid index (JAIRO) is 17.12 cm. The placenta is anterior in location and is not low lying. There are Grade 1 placental changes. The cervix measures 3.7 cm in length. BIOMETRY: Age by LMP: 36 weeks, 1 days. JASBIR by LMP: 08/02/2020. US/OB Limited (No Biometrics) IMPRESSION: Normal amniotic fluid index. Electronically Signed: Celio Moreno MD at 15:03 EDT , Service support ,
== END ==
PROVIDERS: PCP Family Medicine; Referring Provider Obstetrics & Gynecology; Visit Provider Obstetrics & Gynecology
DX: O99.213 Obesity complicating pregnancy, third trimester (principal); Z3A.00 Weeks of gestation of pregnancy not specified
CPT/HCPCS: 76815

== ENCOUNTER → 2020-07-16 15:13 | Outpatient (CLI) | payer BC, SELFPAY ==
[2020-06-18 13:12] VITALS: BMI 39.4
[2020-07-16 09:42] VITALS: BMI 39.9
[2020-07-16 11:10] LABS: Absolute Lymphocyte Count 1.36 X10^3/uL (0.83-4.51); Absolute Neutrophil Count 6.9 X10^3/uL (2.0-7.7); Basophil# 0.02 X10^3/uL; Basophil% 0.2 % (0-1); Eosinophil# 0.03 X10^3/uL; Eosinophils% 0.3 % (0-5); Hematocrit 36.7 % (37-47); Hemoglobin 11.3 g/dL (12.0-15.0); Lymphocyte # 1.36 X10^3/ul (0.83-4.51); Lymphocyte % 15.1 % (19-41); Mean Corp Hgb Conc 30.8 g/dL (32-36); Mean Corpuscular Hgb 26.6 pg (27.0-32.0); Mean Corpuscular Volume 86.4 fL (81-99); Mean Platelet Vol. 11.5 fl (6.2-12.0); Monocyte# 0.61 X10^3/uL; Monocyte% 6.8 % (0-10); NRBC Flagged by Analyzer 0 % (0-5); Neutrophil # 6.92 X10^3/uL (2.7-7.7); Neutrophil % 77.2 % (47-70); Platelet Count 198 K/mm3 (150-450); RBC Distribution Width CV 12.5 % (11.6-14.6); RBC Distribution Width SD 39.5 fl (35.1-43.9); Red Blood Count 4.25 M/mm3 (4.2-5.4)
[2020-07-16 11:41] LABS: ALB/GLOB Ratio 0.6 RATIO (0.9-2.4); AST(SGOT) 14 U/L (15-37); Alanine Aminotransfer ALT/SGPT 14 U/L (13-56); Albumin, Serum 2.5 g/dL (3.2-5.0); Alkaline Phosphatase 133 U/L (45-117); Anion Gap 6 (5-15); BUN 11 mg/dL (7-18); BUN/Creat Ratio 19.3 RATIO (10-20); Calcium,Total 8.9 mg/dL (8.5-10.1); Chloride 106 mmol/L (98-107); Creatinine, Serum 0.57 mg/dL (0.55-1.02); EST Glomerular Filtration Rate 133 mL/min (>60); Est Glom Filt Rate - Afr Amer 161 mL/min (>60); Globulin 4.3 g/dL (2.2-4.2); Glucose 82 mg/dL (74-106); Potassium 3.6 mmol/L (3.5-5.1); Protein, Total 6.8 g/dL (6.4-8.2); Sodium Level 137 mmol/L (136-145)
[2020-07-16 17:42] LABS: Protein, Urine (Random) 26.1 mg/dL (<11.9); Protein:Creat Ratio 175 mg/g CRE (0-200)
== END ==
PROVIDERS: PCP Family Medicine; Referring Provider Obstetrics & Gynecology; Visit Provider Obstetrics & Gynecology
DX: O10.919 Unspecified pre-existing hypertension complicating pregnancy, unspecified trimester (principal); O09.90 Supervision of high risk pregnancy, unspecified, unspecified trimester; Z3A.00 Weeks of gestation of pregnancy not specified
CPT/HCPCS: 36415; 80053; 82570; 84156; 85025; 87081; 87635; C9803; U0002

== ENCOUNTER 2020-07-19 07:02 | Inpatient (IN) | payer BC, SELFPAY ==
[2020-07-16 09:42] VITALS: BMI 39.9
[2020-07-19] VITALS (46 sets, daily range): BP systolic 105–149; BP diastolic 55–89; PULSE 80–131; TEMP 36.8–37.6; O2SAT 90–100; BMI 41.1
[2020-07-19] MEDS: Lactated Ringers 1,000 ML 50 ML IV (07:45)
--- NOTE | 2020-07-19 07:46 | HP.PCM.OB_ITS ---
HPI - General General Date of Admission: 07/19/20 HPI Narrative ERNIE BENÍTEZ, is a 29 F who presents At 38 weeks for induction of labor secondary to IUGR abdominal circumference 5th percentile and chronic hypertension. She has had a complicated by chronic hypertension not r equiring medications and IUGR with reassuring testing [facility] Home Medications multivitamin no.47-iron fum 27 mg-folate no.1 1 mg-dha 300 mg capsule cap PO 12/18/19 [History Last Taken Unknown] blood pressure test kit-large #1 each 06/03/20 [Rx Last Taken Unknown] Allergy/AdvReac Type Severity Reaction Status Date / Time No Known Allergies Allergy Verified 07/16/20 09:40 Family History Father Hypertension Mother Hypertension Grandmother Colon cancer Grandfather No problems noted. 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 History 2 Elective abortions Hx Para 1 Spontaneous abortions Hx # Term Pregnancies Ectopic pregnancies Hx # Pregnancies Multiple births # of living children 1 Past Pregnancies Del. Date Name GA/Weeks Outcome Route Bth Weight Infant Gen Labor Lgth Anesthesia Del Locatn Provider FOB 11/30/17 David 40 live - full term 6lbs 15oz Male [address] [facility] Delivery Date: 11/30/17 Lashonda Zazueta Visit Details Expected Delivery Route/Plan - plan IOL at 38-39 h/o cHTN controlled with no meds Labor Preferences- labor support person: [] labor intervention preferences: [] pain management options preferred: [] cut cord/dad catch: [] : [] PP control planned: [] discussed possible routes of delivery and associated risks: [] special requests: [] Plans flu vaccine: received tdap vaccine:given rhogam: na LARC form signed: declined movement and labor precautions reviewed. Problem list reviewed and updated with the most current plan of care details and appropriate orders placed. Relevant counseling for the gestational age provided. Continue routine care and follow up unless otherwise noted in visit notes/problem list details OB Flowsheet Initial Weight: 200 lb Date -?-?-?-?-?-?-?-?-?-?-?-?- EGA Weight BP Urine Prot -?-?-?--?-?-?-?-?-?-?-?-?- Glucose FHR FuHt Pres Dilation -?-?-?-?-?-?-?-?-?--?-?-?- Effaced St Visit Note 12/31/19 -?-?-?-?-?-?-?-?-?-?-?-?- 9w 2d 199 lb (-16 oz) 136/82 -?-?-?-?-?-?-?-?-?-?-?-?- 170 -?-?-?-?-?-?-?-?-?-?-?-?- GP - CRL consist ent with LMP. GP - CRL 20mm consistent wit h LMP. 01/28/20 -?-?-?-?-?-?-?-?-?-?-?-?- 13w 2d 200 lb (+0 oz) 110/80 Negative -?-?-?-?-?-?-?-?-?-?-?-?- Negative 150 -?-?-?-?-?-?-?-?-?-?-?-?- GP - no cramping or bleeding. Anatomy scan ordered. PRR. 02/25/20 -?-?-?-?-?-?-?-?-?-?-?-?- 17w 2d 206 lb 6 oz (+6 lb 6 oz) 160/82 122/72 Negative -?-?-?-?-?-?-?-?-?-?-?-?- Negative 155 -?-?-?-?-?-?-?-?-?-?-?-?- GP - no cramping or bleeding. Not yet feeling movement. Initial BP elevated. Asymptomatic. GP - no cramping or bleeding . Not yet feeling movement. Initial BP elevated. Normal repeat. Asymptomatic. 03/24/20 -?-?-?-?-?-?-?-?-?-?-?-?- 21w 2d 215 lb 4 oz (+15 lb 4 oz) 136/82 Negative -?-?-?-?-?-?-?-?-?-?-?-?- Negative 160 -?-?-?-?-?-?-?-?-?-?-?-?- GP - no cramping , LOF, VB, DFM. Discussed precautions with previa. Repeat scan at 28w. 04/22/20 -?-?-?-?-?-?-?-?-?-?-?-?- 25w 3d 226 lb (+26 lb) 138/86 Negative -?-?-?-?-?-?-?-?-?-?-?-?- Negative 150 25 -?-?-?-?-?-?-?-?-?-?-?-?- SM- no vb lof go od fm no regular ctx scheduled for fu us and will get gct next time 05/21/20 -?-?-?-?-?-?-?-?-?-?-?-?- 29w 4d 231 lb (+31 lb) 136/78 Negative -?-?-?-?-?-?-?-?-?-?-?-?- Negative 145 29 -?-?-?-?-?-?-?-?-?-?-?-?- SM- no vb lof go od fm no regular ctx 06/03/20 -?-?-?-?-?-?-?-?-?-?-?-?- 31w 3d 235 lb 6 oz (+35 lb 6 oz) 140/78 Negative -?-?-?-?-?-?-?-?-?-?-?-?- Negative 145 31 -?-?-?-?-?-?-?-?-?-?-?-?- GP - no LOF, VB, DFM, ctx. BP elevated. Have been intermittently elevated since 19 weeks meeting criteria for chronic hypertension. Labs ordered today. Given supplies for home BP monitor. Discussed weekly NSTs and growth ultrasounds. Asymptomatic. 06/18/20 -?-?-?-?-?-?-?-?-?-?-?-?- 33w 4d 237 lb 6 oz (+37 lb 6 oz) 138/80 Negative -?-?-?-?-?-?-?-?-?-?-?-?- Negative 140 -?-?-?-?-?-?-?-?-?-?-?-?- GP - no LOF, VB, DFM, ctx. BP normal today. Growth normal with MFM - plan other growths to be done with MFM. 06/24/20 -?-?-?-?-?-?-?-?-?-?-?-?- 34w 3d 240 lb (+40 lb) 136/68 Negative -?-?-?-?-?-?-?-?-?-?-?-?- Negative 148 -?-?-?-?-?-?-?-?-?-?-?-?- MH-NST only reac tive 07/01/20 -?-?-?-?-?-?-?-?-?-?-?-?- 35w 3d 240 lb (+40 lb) 132/86 Negative -?-?-?-?-?-?-?-?-?-?-?-?- Negative 140 -?-?-?-?-?-?-?-?-?-?-?-?- SM- no vb lof go od fm no regular ctx, ordered jerald, and repeat growth us in 2 weeks. 07/06/20 -?-?-?-?-?-?-?-?-?-?-?-?- 36w 1d 244 lb (+44 lb) 140/80 Trace -?-?-?-?-?-?-?-?-?-?-?-?- Negative 140 -?-?-?-?-?-?-?-?-?-?-?-?- MH-reactive NST. Noted elevated BP with trace protein:pre E labs sent 07/16/20 -?-?-?-?-?-?-?-?-?-?-?-?- 37w 4d 244 lb 6 oz (+44 lb 6 oz) 144/94 Negative -?-?-?-?-?-?--?-?-?-?-?-?- Negative 140 -?-?-?-?-?-?-?-?-?-?-?-?- GP - no LOF, VB, DFM, ctx. Plan IOL at 38w for FGR and cHTN 07/19/20 -?-?-?-?-?-?-?-?-?-?-?-?- 38w 0d 145/82 -?-?-?-?-?-?-?-?-?-?-?-?- -?-?-?-?-?-?-?-?-?-?-?-?- NST FHR Rate Baby A Baseline: 140 Variability:: Moderate Accelerations:: None Decelerations:: None NST Reactive:: Appropriate for gestational age and Non-Reactive ROS Review of Systems ROS Unobtainable: due to mental status and other Constitutional Constitutional: Reports systems reviewed and no addt'l complaints, except as documented; Denies as per HPI, change in weight, fatigue, fever(s), malaise, weakness or other Eyes Eyes: Reports systems reviewed and no addt'l complaints, except as documented; Denies as per HPI, change in vision or other ENT HEENT: Reports as per HPI; Denies dizziness, dry mouth, headache(s), loss taste/smell, nasal congestion, nasal discharge, neck pain, sore throat or other Respiratory/Chest Respiratory/Chest: Reports systems reviewed and no addt'l complaints, except as documented Gastrointestinal Gastrointestinal: Reports systems reviewed and no addt'l complaints, except as documented; Denies abdominal pain, nausea or vomiting Musculoskeletal Musculoskeletal: Reports systems reviewed and no addt'l complaints, except as documented; Denies back pain or joint pain Integumentary Integumentary: Reports systems reviewed and no addt'l complaints, except as documented Neurologic Neurologic: Reports systems reviewed and no addt'l complaints, except as documented Psychiatric Psychiatric: Reports systems reviewed and no addt'l complaints, except as documented Endocrine Endocrinology: Reports systems reviewed and no addt'l complaints, except as documented Hematologic/Lymphatic Hematologic/Lymphatic: Reports systems reviewed and no addt'l complaints, except as documented Vital Signs Vital Signs Vital Signs: 07/19/20 07:23 07/19/20 07:24 Temperature 98.4 F 98.4 F Temperature Source Temporal Pulse Rate 120 H Blood Pressure 145/82 H BP Systolic 145 BP Diastolic 82 Pulse Ox 99 Physical Exam Const alert, oriented x3 and no apparent distress HEENT normocephalic Head and Scalp: atraumatic Eyes EOMs intact bilaterally and conjunctivae normal Neck full ROM, no lymphadenopathy, supple and thyroid normal General: trachea midline Lymph Lymphatic: no lymphadenopathy noted Chest inspection of chest normal, palpation of chest normal, inspection of breasts normal and palpation of breasts normal Breast/Axilla Inspection: normal inspection of the axillae Breast/Axilla Palpation: normal palpation of the axillae and no axillary lymphadenopathy Resp normal respiratory effort, no retractions, no use of accessory muscles and clear to auscultation bilaterally Cardio regular rate and regular rhythm GI normal to inspection, nondistended, normoactive bowel sounds, soft to palpation, non-tender, non-distended and no masses external exam normal, appearance of the vagina normal, appearance of the cervix normal and bimanual exam normal Back/Spine no CVA tenderness Extremity normal to inspection Skin no rashes or lesions noted Neuro moves all extremities and deep tendon reflexes 2+ bilaterally Motor Exam: clonus absent and clonus present Psych mental status grossly normal
--- NOTE | 2020-07-19 07:50 | HP.PCM.OB_ITS ---
HPI - General General Date of Admission: 07/19/20 HPI Narrative ERNIE BENÍTEZ, is a 29 F who presents At 38 weeks for induction of labor secondary to IUGR abdominal circumference 5th percentile and chronic hypertension. She has had a complicated by chronic hypertension not requiring medications and IUGR with reassuring testing. [facility] Home Medications multivitamin no.47-iron fum 27 mg-folate no.1 1 mg-dha 300 mg capsule cap PO 12/18/19 [History Last Taken Unknown] blood pressure test kit-large #1 each 06/03/20 [Rx Last Taken Unknown] Allergy/AdvReac Type Severity Reaction Status Date / Time No Known Allergies Allergy Verified 07/16/20 09:40 Family History Father Hypertension Mother Hypertension Grandmother Colon cancer Grandfather No problems noted. 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 Date Name GA/Weeks Outcome Route Bth Weight Infant Gen Labor Lgth Anesthesia Del Locatn Provider FOB 11/30/17 David 40 live - full term 6lbs 15oz Male 18 hours epidural [facility] Delivery Date: 11/30/17 Lashonda Zazueta Visit Details Expected Delivery Route/Plan - plan IOL at 38-39 h/o cHTN controlled with no meds Labor Preferences- labor support person: [] labor intervention preferences: [] pain management options preferred: [] cut cord/dad catch: [] : [] PP control planned: [] discussed possible routes of delivery and associated risks: [] special requests: [] Plans flu vaccine: received tdap vaccine:given rhogam: na LARC form signed: declined movement and labor precautions reviewed. Problem list reviewed and updated with the most current plan of care details and appropriate orders placed. Relevant counseling for the gestational age provided. Continue routine care and follow up unless otherwise noted in visit notes/problem list details OB Flowsheet Initial Weight: 200 lb Date -?-?-?-?-?-?-?-?-?-?-?-?- EGA Weight BP Urine Prot -?--?-?-?-?-?-?-?-?-?-?-?- Glucose FHR FuHt Pres Dilation -?-?-?-?-?-?-?--?-?-?-?-?- Effaced St Visit Note 12/31/19 -?-?-?-?-?-?-?-?-?-?-?-?- 9w 2d 199 lb (-16 oz) 136/82 -?-?-?-?-?-?-?-?-?-?-?-?- 170 -?-?-?-?-?-?-?-?-?-?-?-?- GP - CRL consist ent with LMP. GP - CRL 20mm consistent wit h LMP. 01/28/20 -?-?-?-?-?-?-?-?-?-?-?-?- 13w 2d 200 lb (+0 oz) 110/80 Negative -?-?-?-?-?-?-?-?-?-?-?-?- Negative 150 -?-?-?-?-?-?-?-?-?-?-?-?- GP - no cramping or bleeding. Anatomy scan ordered. PRR. 02/25/20 -?-?-?-?-?-?-?-?-?-?-?-?- 17w 2d 206 lb 6 oz (+6 lb 6 oz) 160/82 122/72 Negative -?-?-?-?-?-?-?-?-?-?-?-?- Negative 155 -?-?-?-?-?-?-?-?-?-?-?-?- GP - no cramping or bleeding. Not yet feeling movement. Initial BP elevated. Asymptomatic. GP - no cramping or bleeding . Not yet feeling movement. Initial BP elevated. Normal repeat. Asymptomatic. 03/24/20 -?-?-?-?-?-?-?-?-?-?-?-?- 21w 2d 215 lb 4 oz (+15 lb 4 oz) 136/82 Negative -?-?-?-?-?-?-?-?-?-?-?-?- Negative 160 -?-?-?-?-?-?-?-?-?-?-?-?- GP - no cramping , LOF, VB, DFM. Discussed precautions with previa. Repeat scan at 28w. 04/22/20 -?-?-?-?-?-?-?-?-?-?-?-?- 25w 3d 226 lb (+26 lb) 138/86 Negative -?-?-?-?-?-?-?-?-?-?-?-?- Negative 150 25 -?-?-?-?-?-?-?-?-?-?-?-?- SM- no vb lof go od fm no regular ctx scheduled for fu us and will get gct next time 05/21/20 -?-?-?-?-?-?-?-?-?-?-?-?- 29w 4d 231 lb (+31 lb) 136/78 Negative -?-?-?-?-?-?-?-?-?-?-?-?- Negative 145 29 -?-?-?-?-?-?-?-?-?-?-?-?- SM- no vb lof go od fm no regular ctx 06/03/20 -?-?-?-?-?-?-?-?-?-?-?-?- 31w 3d 235 lb 6 oz (+35 lb 6 oz) 140/78 Negative -?-?-?-?-?-?-?-?-?-?-?-?- Negative 145 31 -?-?-?-?-?-?-?-?-?-?-?-?- GP - no LOF, VB, DFM, ctx. BP elevated. Have been intermittently elevated since 19 weeks meeting criteria for chronic hypertension. Labs ordered today. Given supplies for home BP monitor. Discussed weekly NSTs and growth ultrasounds. Asymptomatic. 06/18/20 -?-?-?-?-?-?-?-?-?-?-?-?- 33w 4d 237 lb 6 oz (+37 lb 6 oz) 138/80 Negative -?-?-?-?-?-?-?-?-?-?-?-?- Negative 140 -?-?-?-?-?-?-?-?-?-?-?-?- GP - no LOF, VB, DFM, ctx. BP normal today. Growth normal with MFM - plan other growths to be done with MFM. 06/24/20 -?-?-?-?-?-?-?-?-?-?-?-?- 34w 3d 240 lb (+40 lb) 136/68 Negative -?-?-?-?-?-?-?-?-?-?-?-?- Negative 148 -?-?-?-?-?-?-?-?-?-?-?-?- MH-NST only reac tive 07/01/20 -?-?-?-?-?-?-?-?-?-?-?-?- 35w 3d 240 lb (+40 lb) 132/86 Negative -?-?-?-?-?-?-?-?-?-?-?-?- Negative 140 -?-?-?-?-?-?-?-?-?-?-?-?- SM- no vb lof go od fm no regular ctx, ordered jerald, and repeat growth us in 2 weeks. 07/06/20 -?-?-?-?-?-?-?-?-?-?-?-?- 36w 1d 244 lb (+44 lb) 140/80 Trace -?-?-?-?-?-?-?-?-?-?-?-?- Negative 140 -?-?-?-?-?-?-?-?-?-?-?-?- MH-reactive NST. Noted elevated BP with trace protein:pre E labs sent 07/16/20 -?-?-?-?-?-?-?-?-?-?-?-?- 37w 4d 244 lb 6 oz (+44 lb 6 oz) 144/94 Negative -?-?-?-?--?-?-?-?-?-?-?-?- Negative 140 -?-?-?-?-?-?-?-?-?-?-?-?- GP - no LOF, VB, DFM, ctx. Plan IOL at 38w for FGR and cHTN 07/19/20 -?-?-?-?-?-?-?-?-?-?-?-?- 38w 0d 145/82 -?-?-?-?-?-?-?-?-?-?-?-?- -?-?-?-?-?-?-?-?-?-?-?-?- Vital Signs Vital Signs Vital Signs: 07/19/20 07:23 07/19/20 07:24 Temperature 98.4 F 98.4 F Temperature Source Temporal Pulse Rate 120 H Blood Pressure 145/82 H BP Systolic 145 BP Diastolic 82 Pulse Ox 99
--- NOTE | 2020-07-19 07:50 | PCM.HP.OB ---
HPI - General General Date of Admission: 07/19/20 HPI Narrative ERNIE BENÍTEZ, is a 29 F who presents At 38 weeks for induction of labor secondary to IUGR abdominal circumference 5th percentile and chronic hypertension. She has had a complicated by chronic hypertension not requiring medications and IUGR with reassuring testing. [facility] Home Medications multivitamin no.47-iron fum 27 mg-folate no.1 1 mg-dha 300 mg capsule cap PO 12/18/19 [History Last Taken Unknown] blood pressure test kit-large #1 each 06/03/20 [Rx Last Taken Unknown] Allergy/AdvReac Type Severity Reaction Status Date / Time No Known Allergies Allergy Verified 07/16/20 09:40 Family History Father Hypertension Mother Hypertension Grandmother Colon cancer Grandfather No problems noted. 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 Date Name GA/Weeks Outcome Route Bth Weight Infant Gen Labor Lgth Anesthesia Del Locatn Provider FOB 11/30/17 David 40 live - full term 6lbs 15oz Male 18 hours epidural [facility] Delivery Date: 11/30/17 Lashonda Zazueta Visit Details Expected Delivery Route/Plan - plan IOL at 38-39 h/o cHTN controlled with no meds Labor Preferences- labor support person: [] labor intervention preferences: [] pain management options preferred: [] cut cord/dad catch: [] : [] PP control planned: [] discussed possible routes of delivery and associated risks: [] special requests: [] Plans flu vaccine: received tdap vaccine:given rhogam: na LARC form signed: declined movement and labor precautions reviewed. Problem list reviewed and updated with the most current plan of care details and appropriate orders placed. Relevant counseling for the gestational age provided. Continue routine care and follow up unless otherwise noted in visit notes/problem list details OB Flowsheet Initial Weight: 200 lb Date <del>?</del> EGA Weight BP Urine Prot <del>?</del> Glucose FHR FuHt Pres Dilation <del>?</del> Effaced St Visit Note 12/31/19 <del>?</del> 9w 2d 199 lb (-16 oz) 136/82 <del>?</del> 170 <del>?</del> GP - CRL consistent with LMP. GP - CRL 20mm consistent with LMP. 01/28/20 <del>?</del> 13w 2d 200 lb (+0 oz) 110/80 Negative <del>?</del> Negative 150 <del>?</del> GP - no cramping or bleeding. Anatomy scan ordered. PRR. 02/25/20 <del>?</del> 17w 2d 206 lb 6 oz (+6 lb 6 oz) 160/82 122/72 Negative <del>?</del> Negative 155 <del>?</del> GP - no cramping or bleeding. Not yet feeling movement. Initial BP elevated. Asymptomatic. GP - no cramping or bleeding. Not yet feeling movement. Initial BP elevated. Normal repeat. Asymptomatic. 03/24/20 <del>?</del> 21w 2d 215 lb 4 oz (+15 lb 4 oz) 136/82 Negative <del>?</del> Negative 160 <del>?</del> GP - no cramping, LOF, VB, DFM. Discussed precautions with previa. Repeat scan at 28w. 04/22/20 <del>?</del> 25w 3d 226 lb (+26 lb) 138/86 Negative <del>?</del> Negative 150 25 <del>?</del> SM- no vb lof good fm no regular ctx scheduled for fu us and will get gct next time 05/21/20 <del>?</del> 29w 4d 231 lb (+31 lb) 136/78 Negative <del>?</del> Negative 145 29 <del>?</del> SM- no vb lof good fm no regular ctx 06/03/20 <del>?</del> 31w 3d 235 lb 6 oz (+35 lb 6 oz) 140/78 Negative <del>?</del> Negative 145 31 <del>?</del> GP - no LOF, VB, DFM, ctx. BP elevated. Have been intermittently elevated since 19 weeks meeting criteria for chronic hypertension. Labs ordered today. Given supplies for home BP monitor. Discussed weekly NSTs and growth ultrasounds. Asymptomatic. 06/18/20 <del>?</del> 33w 4d 237 lb 6 oz (+37 lb 6 oz) 138/80 Negative <del>?</del> Negative 140 <del>?</del> GP - no LOF, VB, DFM, ctx. BP normal today. Growth normal with MFM - plan other growths to be done with MFM. 06/24/20 <del>?</del> 34w 3d 240 lb (+40 lb) 136/68 Negative <del>?</del> Negative 148 <del>?</del> MH-NST only reactive 07/01/20 <del>?</del> 35w 3d 240 lb (+40 lb) 132/86 Negative <del>?</del> Negative 140 <del>?</del> SM- no vb lof good fm no regular ctx, ordered jerald, and repeat growth us in 2 weeks. 07/06/20 <del>?</del> 36w 1d 244 lb (+44 lb) 140/80 Trace <del>?</del> Negative 140 <del>?</del> MH-reactive NST. Noted elevated BP with trace protein:pre E labs sent 07/16/20 <del>?</del> 37w 4d 244 lb 6 oz (+44 lb 6 oz) 144/94 Negative <del>?</del> Negative 140 <del>?</del> GP - no LOF, VB, DFM, ctx. Plan IOL at 38w for FGR and cHTN 07/19/20 <del>?</del> 38w 0d 145/82 <del>?</del> <del>?</del> Vital Signs Vital Signs Vital Signs: 07/19/20 07:23 07/19/20 07:24 Temperature 98.4 F 98.4 F Temperature Source Temporal Pulse Rate 120 H Blood Pressure 145/82 H BP Systolic 145 BP Diastolic 82 Pulse Ox 99
[2020-07-19] MEDS: 0.9% Normal Saline Single 100 ML IV.SOLN. INTRA-UTER (07:58)
[2020-07-19 08:26] LABS: Absolute Lymphocyte Count 1.48 X10^3/uL (0.83-4.51); Absolute Neutrophil Count 6.4 X10^3/uL (2.0-7.7); Basophil# 0.01 X10^3/uL; Basophil% 0.1 % (0-1); Eosinophil# 0.04 X10^3/uL; Eosinophils% 0.5 % (0-5); Hemoglobin 11.2 g/dL (12.0-15.0); Lymphocyte # 1.48 X10^3/ul (0.83-4.51); Lymphocyte % 17.3 % (19-41); Mean Corpuscular Hgb 27.4 pg (27.0-32.0); Mean Corpuscular Volume 85.6 fL (81-99); Mean Platelet Vol. 11.6 fl (6.2-12.0); Monocyte# 0.62 X10^3/uL; Monocyte% 7.2 % (0-10); NRBC Flagged by Analyzer 0 % (0-5); Neutrophil # 6.38 X10^3/uL (2.7-7.7); Neutrophil % 74.5 % (47-70); Platelet Count 204 K/mm3 (150-450); RBC Distribution Width CV 12.7 % (11.6-14.6); RBC Distribution Width SD 39.1 fl (35.1-43.9); Red Blood Count 4.09 M/mm3 (4.2-5.4); White Blood Count 8.6 K/mm3 (4.4-11.0)
[2020-07-19] MEDS: Oxytocin 30 units/NS 500 ml 30 UNITS/500 ML IV.SOLN IV (08:32)
[2020-07-19 08:38] LABS: AST(SGOT) 17 U/L (15-37); Alanine Aminotransfer ALT/SGPT 14 U/L (13-56); Creatinine, Serum 0.54 mg/dL (0.55-1.02); EST Glomerular Filtration Rate 141 mL/min (>60); Est Glom Filt Rate - Afr Amer 170 mL/min (>60); Estimated Creatinine Clearance 138.32 ml/min; Uric Acid 3.5 mg/dL (2.6-6.0)
--- NOTE | 2020-07-19 12:56 | HP.PCM.OB_ITS ---
HPI - General General Date of Admission: 07/19/20 HPI Narrative ERNIE BENÍTEZ, is a 29 F who presents At 38 weeks for induction of labor secondary to IUGR abdominal circumference 5th percentile and chronic hypertension. She has had a complicated by chronic hypertension not requiring medications and IUGR with reassuring testing. Maternal Data Information JASBIR Calculator 2 Estimated Delivery Date Method Current WG Current Estimate 08/02/20 LMP (Certain) 38w 0d PFSH Medical History Chronic hypertension History of prior with IUGR Home Medications multivitamin no.47-iron fum 27 mg-folate no.1 1 mg-dha 300 mg capsule 1 cap PO DAILY 12/18/19 [History Last Taken 07/18/20] blood pressure test kit-large #1 each 06/03/20 [Rx Last Taken Unknown] Allergy/AdvReac Type Severity Reaction Status Date / Time No Known Allergies Allergy Verified 07/19/20 19:57 Family History Father Hypertension Mother Hypertension Grandmother Colon cancer Grandfather No problems noted. 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 Date Name GA/Weeks Outcome Route Bth Weight Infant Gen Labor Lgth Anesthesia Del Locatn Provider FOB 11/30/17 David 40 live - full term 6lbs 15oz Male 18 hours epidural [facility] DEMETRIO Criag Delivery Date: 11/30/17 Lashonda Zazueta Visit Details Expected Delivery Route/Plan - plan IOL at 38-39 h/o cHTN controlled with no meds Labor Preferences- labor support person: [] labor intervention preferences: [] pain management options preferred: [] cut cord/dad catch: [] : [] PP control planned: [] discussed possible routes of delivery and associated risks: [] special requests: [] Plans flu vaccine: received tdap vaccine:given rhogam: na LARC form signed: declined movement and labor precautions reviewed. Problem list reviewed and updated with the most current plan of care details and appropriate orders placed. Relevant counseling for the gestational age provided. Continue routine care and follow up unless otherwise noted in visit notes/problem list details OB Flowsheet Initial Weight: 200 lb Date -?-?-?-?-?-?-?-?-?-?-?-?- EGA Weight BP Urine Prot -?-?-?-?-?-?-?-?-?-?-?-?- Glucose FHR FuHt Pres Dilation -?-?-?-?-?-?-?-?-?-?-?-?- Effaced St Visit Note 12/31/19 -?-?-?-?-?-?-?-?-?-?-?-?- 9w 2d 199 lb (-16 oz) 136/82 -?-?-?-?-?-?-?-?-?-?-?-?- 170 -?-?-?-?-?-?-?-?-?-?-?-?- GP - CRL consist ent with LMP. GP - CRL 20mm consistent wit h LMP. 01/28/20 -?-?-?-?-?-?-?-?-?-?-?-?- 13w 2d 200 lb (+0 oz) 110/80 Negative -?-?-?-?-?-?-?-?-?-?-?-?- Negative 150 -?-?-?-?-?-?-?-?-?-?-?-?- GP - no cramping or bleeding. Anatomy scan ordered. PRR. 02/25/20 -?-?-?-?-?-?-?-?-?-?-?-?- 17w 2d 206 lb 6 oz (+6 lb 6 oz) 160/82 122/72 Negative -?-?-?-?-?-?-?-?-?-?-?-?- Negative 155 -?-?-?-?-?-?-?-?-?-?-?-?- GP - no cramping or bleeding. Not yet feeling movement. Initial BP elevated. Asymptomatic. GP - no cramping or bleeding . Not yet feeling movement. Initial BP elevated. Normal repeat. Asymptomatic. 03/24/20 -?-?-?-?--?-?-?-?-?-?-?-?- 21w 2d 215 lb 4 oz (+15 lb 4 oz) 136/82 Negative -?-?-?-?-?-?-?-?-?-?-?-?- Negative 160 -?-?-?-?-?-?-?-?-?-?-?-?- GP - no cramping , LOF, VB, DFM. Discussed precautions with previa. Repeat scan at 28w. 04/22/20 -?-?-?-?-?-?-?-?-?-?-?-?- 25w 3d 226 lb (+26 lb) 138/86 Negative -?-?-?-?-?-?-?-?-?-?-?-?- Negative 150 25 -?-?-?-?-?-?-?-?-?-?-?-?- SM- no vb lof go od fm no regular ctx scheduled for fu us and will get gct next time 05/21/20 -?-?-?-?-?-?-?-?-?-?-?-?- 29w 4d 231 lb (+31 lb) 136/78 Negative -?-?-?-?-?-?-?-?-?-?-?-?- Negative 145 29 -?-?-?-?-?-?-?-?-?-?-?-?- SM- no vb lof go od fm no regular ctx 06/03/20 -?-?-?-?-?-?-?-?-?-?-?-?- 31w 3d 235 lb 6 oz (+35 lb 6 oz) 140/78 Negative -?-?-?-?-?-?-?-?-?-?-?-?- Negative 145 31 -?-?-?-?-?-?-?-?-?-?-?-?- GP - no LOF, VB, DFM, ctx. BP elevated. Have been intermittently elevated since 19 weeks meeting criteria for chronic hypertension. Labs ordered today. Given supplies for home BP monitor. Discussed weekly NSTs and growth ultrasounds. Asymptomatic. 06/18/20 -?-?-?-?-?-?-?-?-?-?-?-?- 33w 4d 237 lb 6 oz (+37 lb 6 oz) 138/80 Negative -?-?-?-?-?-?-?-?-?-?-?-?- Negative 140 -?-?-?-?-?-?-?-?-?-?-?-?- GP - no LOF, VB, DFM, ctx. BP normal today. Growth normal with MFM - plan other growths to be done with MFM. 06/24/20 -?-?-?-?-?--?-?-?-?-?-?-?- 34w 3d 240 lb (+40 lb) 136/68 Negative -?-?-?-?-?-?-?-?-?-?-?-?- Negative 148 -?-?-?-?-?-?-?-?-?-?-?-?- MH-NST only reac tive 07/01/20 -?-?-?-?-?-?-?-?-?-?-?-?- 35w 3d 240 lb (+40 lb) 132/86 Negative -?-?-?-?-?-?-?-?-?-?-?-?- Negative 140 -?-?-?-?-?-?-?-?-?-?-?-?- SM- no vb lof go od fm no regular ctx, ordered jairo, and repeat growth us in 2 weeks. 07/06/20 -?-?-?-?-?-?-?-?-?-?-?-?- 36w 1d 244 lb (+44 lb) 140/80 Trace -?-?-?-?-?-?-?-?-?-?-?-?- Negative 140 -?-?-?-?-?-?-?-?-?-?-?-?- MH-reactive NST. Noted elevated BP with trace protein:pre E labs sent 07/16/20 -?-?-?-?-?-?-?-?-?-?-?-?- 37w 4d 244 lb 6 oz (+44 lb 6 oz) 144/94 Negative -?-?-?-?-?-?-?-?-?-?-?-?- Negative 140 -?-?-?-?-?-?-?-?-?-?-?-?- GP - no LOF, VB, DFM, ctx. Plan IOL at 38w for FGR and cHTN 07/19/20 -?-?-?-?-?--?-?-?-?-?-?-?- 38w 0d 247 lb 5.738 oz (+47 lb 5.738 oz) 145/82 136/85 131/83 131/77 126/82 129/79 143/75 149/75 136/89 141/78 123/58 133/69 128/70 134/63 134/77 131/79 118/55 119/57 122/70 124/69 -?-?-?-?-?-?-?-?-?-?-?-?- -?-?-?-?-?-?-?-?-?-?-?-?- NST FHR Rate Baby A Baseline: 130 Variability:: Moderate Accelerations:: 15 x 15 Decelerations:: None NST Reactive:: Yes FHR Category:: Category I Uterine Activity:: irregular ROS Review of Systems ROS Unobtainable: due to mental status and other Constitutional Constitutional: Reports systems reviewed and no addt'l complaints, except as documented; Denies as per HPI, change in weight, fatigue, fever(s), malaise, weakness or other Eyes Eyes: Reports systems reviewed and no addt'l complaints, except as documented; Denies as per HPI, change in vision or other ENT HEENT: Reports systems reviewed and no addt'l complaints, except as documented; Denies headache(s) Cardiovascular Cardiovascular: Reports systems reviewed and no addt'l complaints, except as documented; Denies chest pain or dyspnea Respiratory/Chest Respiratory/Chest: Reports systems reviewed and no addt'l complaints, except as documented Gastrointestinal Gastrointestinal: Reports systems reviewed and no addt'l complaints, except as documented; Denies abdominal pain Genitourinary Genitourinary: Reports systems reviewed and no addt'l complaints, except as documented, contractions Details: present (irregular) and movement Details: present; Denies dysuria or genital lesions Musculoskeletal Musculoskeletal: Reports systems reviewed and no addt'l complaints, except as documented; Denies back pain or joint pain Neurologic Neurologic: Reports systems reviewed and no addt'l complaints, except as documented Psychiatric Psychiatric: Reports systems reviewed and no addt'l complaints, except as documented Endocrine Endocrinology: Reports systems reviewed and no addt'l complaints, except as documented Hematologic/Lymphatic Hematologic/Lymphatic: Reports systems reviewed and no addt'l complaints, except as documented Vital Signs Vital Signs Vital Signs: 07/19/20 07:23 07/19/20 07:24 07/19/20 08:34 Temperature 98.4 F 98.4 F Temperature Source Temporal Pulse Rate 120 H 101 H Blood Pressure 145/82 H 136/85 H BP Systolic 145 136 BP Diastolic 82 85 Pulse Ox 99 07/19/20 09:26 07/19/20 10:37 07/19/20 11:48 Temperature 98.8 F Temperature Source Pulse Rate 104 H 80 99 Blood Pressure 131/83 H 131/77 H 126/82 H BP Systolic 131 131 126 BP Diastolic 83 77 82 Pulse Ox 07/19/20 12:43 07/19/20 12:44 Temperature 99.3 F H Temperature Source Temporal Pulse Rate 89 94 Blood Pressure 129/79 H BP Systolic 129 BP Diastolic 79 Pulse Ox 97 98 Physical Exam Const alert, oriented x3 and no apparent distress HEENT normocephalic Head and Scalp: atraumatic Eyes EOMs intact bilaterally and conjunctivae normal Neck full ROM, no lymphadenopathy, supple and thyroid normal General: trachea midline Lymph Lymphatic: no lymphadenopathy noted Chest inspection of chest normal Resp normal respiratory effort, no retractions, no use of accessory muscles and clear to auscultation bilaterally Cardio regular rhythm GI normal to inspection, nondistended, normoactive bowel sounds, soft to palpation and non-tender Inspection: gravid external exam normal Manual OB Exam: estimated gestational size appropriate, presentation cephalic, dilated, effaced and station Extremity normal to inspection General Extremity: Negative for edema Skin no rashes or lesions noted Neuro moves all extremities and deep tendon reflexes 2+ bilaterally Motor Exam: clonus absent Psych mental status grossly normal Labs Labs Labs: Blood Type A POSITIVE Antibody Screen NEGATIVE Hct 35.0 % (37-47) L Hgb 11.2 g/dL (12.0-15.0) L Obstetrics US VZV IgG Antibody 1208 index (Immune >165) Rubella IgG Antibody 299.0 IU/mL Hep Bs Antigen Non-Reactive (Nonreactive) Neisseria gonorrhoeae DNA (CORRINE) Negative (Negative) HIV 1&2 Antibody Non-Reactive (Nonreactive) C.trachomatis DNA (PCR) Negative (Negative) Glucose 1 Hr 50 gm 108 mg/dL (70-140) Group B Strep DNA Negative (Negative) Rhogam given: No Assessment & Plan (1) : QUALIFIERS: Weeks of gestation: 37 weeks Qualified Code(s): Z3A.37 - 37 weeks gestation of COMMENT: declines carrier, genetic and NTD; NL anatomy. f/u anantomy scan 05/06/20 NL (2) Supervision of high risk , antepartum: COMMENT: PRR JASBIR 08/02/20 girl Renetta PC: David Spouse: Sushil (3) Obesity affecting : QUALIFIERS: Trimester: third trimester Qualified Code(s): O99.213 - Obesity complicating , third trimester COMMENT: BMI 33. Early 1h GTT at [facility] nl. encourage healthy weight gain. (4) History of gestational hypertension: COMMENT: nl baseline labs. (5) History of tetanus, diphtheria, and acellular pertussis booster vaccination (Tdap): COMMENT: 05/21/20 (6) Chronic hypertension during : COMMENT: Dx based on elevated BPs starting at 17w. Labs ordered 06/03. Weekly NSTs. Nl BPs at home. Growths starting 32w. Plan IOL 38-39w. JAIRO/pre e labs nl 07/06/20 (7) 32 weeks gestation of : COMMENT: COVID test ordered 06/09/20 (henry 07/16 at 1440) (8) Intrauterine growth restriction (IUGR) affecting care of mother: COMMENT: AC 5%ile. Plan IOL at 38w. PLAN: Patient presents IOL, plan management for with .pit, fb, arom when able Pain management: plans epidural. GBS negative. Management of any complications: IUG, cHTN I have reviewed the [facility] and made any clinically relevant updates.
[2020-07-19] MEDS: Acetaminophen 325 MG Tablet PO (19:42)
[2020-07-19] MEDS: Ondansetron 4 MG/2 ML Vial IV (19:42)
[2020-07-19] MEDS: Lactated Ringers 500 ML 999 ML IV ×2 (19:53→20:55)
[2020-07-19] MEDS: fentaNYL-bupivacaine (epidural) 100 ML BAG EPIDURAL (20:45)
[2020-07-19] MEDS: proCHLORPERazine 10 MG/2 ML Vial IV (21:12)
[2020-07-19] MEDS: Lactated Ringers 1,000 ML 200 ML IV (21:31)
[2020-07-19] MEDS: Oxytocin 30 units/NS 500 ml 30 UNITS/500 ML IV.SOLN 334 UNITS IV (21:49)
--- NOTE | 2020-07-19 21:58 | EX.PCM.OBRPT ---
Assessment & Plan (1) : QUALIFIERS: Weeks of gestation: 37 weeks Qualified Code(s): Z3A.37 - 37 weeks gestation of COMMENT: declines carrier, genetic and NTD; NL anatomy. f/u anantomy scan 05/06/20 NL (2) Supervision of high risk , antepartum: COMMENT: PRR JASBIR 08/02/20 mckayla Jackson PC: David Spouse: Sushil (3) Obesity affecting : QUALIFIERS: Trimester: third trimester Qualified Code(s): O99.213 - Obesity complicating , third trimester COMMENT: BMI 33. Early 1h GTT at [facility] nl. encourage healthy weight gain. (4) History of gestational hypertension: COMMENT: nl baseline labs. (5) History of tetanus, diphtheria, and acellular pertussis booster vaccination (Tdap): COMMENT: 05/21/20 (6) Chronic hypertension during : COMMENT: Dx based on elevated BPs starting at 17w. Labs ordered 06/03. Weekly NSTs. Nl BPs at home. Growths starting 32w. Plan IOL 38-39w. JAIRO/pre e labs nl 07/06/20 (7) 32 weeks gestation of : COMMENT: COVID test ordered 06/09/20 (henry 07/16 at 1440) (8) Intrauterine growth restriction (IUGR) affecting care of mother: COMMENT: AC 5%ile. Plan IOL at 38w. (9) Encounter for induction of labor: (10) Vaginal delivery: COMMENT: 38 week IOL cHTN and 5% AC IUGR. SM. Maternal Data Information JASBIR Calculator Estimated Delivery Date Method Current WG Current Estimate 08/02/20 LMP (Certain) 38w 0d Vaginal Delivery Maternal Presentation Maternal Presentation: Medically Indicated Induction Maternal Presentation: 38 weeks cHTN and IUGR 5 % AC Type of Induction: Pitocin and Fischer Bulb Operative Information Date of Procedure: 07/19/20 Pre-Operative Diagnosis: iol chtn and iugr Post-Operative Diagnosis: same Surgery / Procedure Performed: Spontaneous Vaginal Delivery Type of Anesthesia: Epidural Special Medications: none Estimated Blood Loss: 100 Fluids Replaced: crystalloid Findings Description of Procedure: Patient began pushing and delivered the head in the ROP presentation. The head was delivered atraumatically and a loose nuchal cord ?1 was identified and the infant delivered through without complication. The anterior and posterior shoulders delivered without complication followed by the rest of the and the was placed on the maternal abdomen. Delayed cord clamping was employed for approximately 60 seconds. Cord was clamped and cut and gentle traction was applied to the cord and the placenta delivered spontaneously immediately following it was noted to be intact with three-vessel cord. The perineum and vagina were inspected and noted to have a small first-degree perineal laceration that was repaired in the usual fashion with 3-0 Vicryl Rapide. EBL was 100 cc. Patient and tolerated delivery well. Presentation: ROP Amniotic Membrane Rupture Type: Artificial Amniotic Fluid Description: Clear Placental Delivery Description: Spontaneous Placenta Disposition: [facility] Cord Vessel Description: 3 Vessels Cord Entanglement: Around neck x 1, loose Nuchal Cord Compression: With compression A Gender: Female Delayed Cord Clamping: Yes Post Vaginal Delivery Medications Given After Delivery: IV Pitocin Episiotomy Description: None Laceration: Perineal Extension/lac and 1st degree Complication Complications: None Procedures Urinary/Genital [id number]: [id number] Vaginal Delivery [facility]
[2020-07-20] VITALS (14 sets, daily range): BP systolic 119–134; BP diastolic 63–70; PULSE 84–109; RESP 16–18; TEMP 36.6–37.2; O2SAT 90–99
[2020-07-20] MEDS: 0.9% Saline Lock 10 ML Syringe IV (00:39)
--- NOTE | 2020-07-20 07:54 | PCM.PN.OB ---
Subjective Subjective Patient doing well without complaints. Tolerating PO. Ambulating and voiding without difficulty. Breast feeding well. Denies chest pain, shortness of breath, calf pain/swelling, fevers, chills, lightheadedness. Objective Data Objective Data Vital Signs: Vital Signs Temp Pulse Resp BP Pulse Ox 98.2 F 97 16 125/65 H 95 07/20/20 03:26 07/20/20 03:26 07/20/20 00:15 07/20/20 03:26 07/20/20 03:26 Oxygen Delivery Method Room Air Weight: 247 lb 5.738 oz Body Mass Index (BMI) 41.1 Intake & Output: Intake and Output for Last 24 Hours 07/18/20 07/19/20 07/20/20 23:59 23:59 23:59 Intake Total 2390.10 / 2390.10 333 / 333 Output Total 100 / 100 1250 / 1250 Balance 2290.10 / 2290.10 -917 / -917 Lab / Micro Data Result Diagrams: 07/19/20 07:45 07/19/20 07:45 Labs: Laboratory Results - last 24 hr 07/19/20 07/19/20 07/19/20 07:45 07:45 07:45 WBC 8.6 RBC 4.09 L Hgb 11.2 L Hct 35.0 L MCV 85.6 MCH 27.4 MCHC 32.0 RDW Std Deviation 39.1 RDW Coeff of Oj 12.7 Plt Count 204 MPV 11.6 Immature Gran % (Auto) 0.400 Neut % (Auto) 74.5 H Lymph % (Auto) 17.3 L [place] % (Auto) 7.2 Eos % (Auto) 0.5 Baso % (Auto) 0.1 Absolute Neuts (auto) 6.4 Absolute Lymphs (auto) 1.48 Nucleated RBC % 0 Creatinine 0.54 L Estim Creat Clear Calc 138.32 Est GFR (MDRD) Af Amer 170 Est GFR (MDRD) Non-Af 141 Uric Acid 3.5 AST 17 ALT 14 Blood Type A POSITIVE Antibody Screen NEGATIVE Physical Exam Const alert and oriented x3 HEENT normocephalic Eyes PERRL Neck full ROM Resp normal respiratory effort GI soft to palpation GI Narrative: FF below U Assessment & Plan (1) Vaginal delivery: COMMENT: 38 week IOL cHTN and 5% AC IUGR. SM. PLAN: s/p PPD # 1 1. routine post delivery care 2. breast feeding- support given 3. rh positive 4. rubella immune 5. BPs WNL
[2020-07-20] MEDS: Naproxen 250 MG Tablet 500 MG PO (09:05)
[2020-07-20] MEDS: Senna/Docusate Sodium 1 Tablet PO (18:21)
[2020-07-21 01:35] VITALS: PULSE 88; TEMP 36.5; O2SAT 98
[2020-07-21 01:36] VITALS: BP 103/53; PULSE 85
[2020-07-21 01:46] VITALS: BP 103/53; PULSE 83; RESP 16; TEMP 36.5; O2SAT 97
--- NOTE | 2020-07-21 08:43 | PCM.PN.OB ---
Subjective Subjective Patient doing well without complaints. Tolerating PO. Ambulating and voiding without difficulty. Feeding well. Denies chest pain, shortness of breath, calf pain/swelling, fevers, chills, lightheadedness. Objective Data Objective Data Vital Signs: Vital Signs Temp Pulse Resp BP Pulse Ox 97.7 F L 83 16 103/53 L 97 07/21/20 01:46 07/21/20 01:46 07/21/20 01:46 07/21/20 01:46 07/21/20 01:46 Oxygen Delivery Method Room Air Weight: 247 lb 5.738 oz Body Mass Index (BMI) 41.1 Intake & Output: Intake and Output for Last 24 Hours 07/19/20 07/20/20 07/21/20 23:59 23:59 23:59 Intake Total 2390.10 / 2390.10 333 / 333 Output Total 100 / 100 1250 / 1250 Balance 2290.10 / 2290.10 -917 / -917 Lab / Micro Data Result Diagrams: 07/19/20 07:45 07/19/20 07:45 ROS Constitutional Constitutional: Denies fever(s) Cardiovascular Cardiovascular: Denies chest pain, dyspnea or lightheadedness Gastrointestinal Gastrointestinal: Reports abdominal pain; Denies constipation or diarrhea Neurologic Neurologic: Denies dizziness or headache(s) Physical Exam Const alert, oriented x3, no apparent distress, average body habitus, healthy appearing and well nourished HEENT normocephalic Head and Scalp: atraumatic Eyes PERRL and EOMs intact bilaterally Neck full ROM Lymph Lymphatic: no lymphadenopathy noted Resp normal respiratory effort, no retractions and no use of accessory muscles Cardio regular rate GI soft to palpation, non-tender and non-distended Palpation: other Other Details: fundus firm Extremity normal to inspection and no clubbing, cyanosis or edema Skin no rashes or lesions noted Neuro no focal motor deficits and no sensory deficits noted Psych mental status grossly normal, affect normal and speech normal Assessment & Plan (1) Vaginal delivery: PLAN: s/p PPD # 2 1. routine post delivery care 2. breast feeding- support given 3. rh positive 4. rubella immune
--- NOTE | 2020-07-21 08:45 | PCM.DC ---
Discharge Instructions Diet Discharge Diet: No restrictions Activity Discharge Activity: Return to Normal Activity, May not drive while taking narcotic pain medications. and May Shower May resume sexual activity in: 4-6 weeks Dressing / Incision Call your doctor if your incision/area has: Continuous Slow Oozing, Sudden Increased Bleeding, Increased Pain/ Swelling, Increased Redness and Foul Smelling Discharge Follow Up Care When: Call to make an appointment with your doctor in 6 weeks. If you had elevated Blood Pressure or 4th degree laceration you will need to be seen in 2 weeks. Test Results: Test results from this visit will be discussed in further detail at your follow-up appointment, if applicable. Discharge Plan Admission Admit Date/Time: 07/19/20 07:02 Attending Provider: Shira Garrido Primary Care Provider: Kaley Cole Instructions Patient Instructions: After a Vaginal Discharge Orders/Prescriptions Prescriptions: New naproxen 250 MG tablet 250 - 500 mg PO Q8H PRN PRN (Reason: MILD PAIN) Qty: 30 RF: 1 Continued PNV-DHA 27 mg iron-1 mg -300 mg capsule 1 cap PO DAILY RF: 0 No Action (DME) blood pressure test kit-large Kit See Rx Instructions .ROUTE .MEDSUPPLY Qty: 1 RF: 0 Referrals / Follow Up: Kaley Cole DO [Primary Care Provider] - Disposition Disposition (needs filled in before D/C Order can be placed): Home, self care
[2020-07-21 09:00] VITALS: BP 127/72; PULSE 89; RESP 16; TEMP 36.4; O2SAT 97
[2020-07-21 09:04] VITALS: TEMP 36.4
[2020-07-21 09:06] VITALS: BP 127/72; PULSE 93
== END 2020-07-21 11:25 | disposition home or self-care (01) | DRG 807 ==
PROVIDERS: Admitting Provider Obstetrics & Gynecology; PCP Family Medicine; Visit Provider Obstetrics & Gynecology
DX: O10.92 Unspecified pre-existing hypertension complicating childbirth (principal); Z37.0 Single live birth; Z3A.38 38 weeks gestation of pregnancy; O36.5930 Maternal care for other known or suspected poor fetal growth, third trimester, not applicable or unspecified; O99.214 Obesity complicating childbirth; E66.9 Obesity, unspecified; O69.81X0 Labor and delivery complicated by cord around neck, without compression, not applicable or unspecified; O70.0 First degree perineal laceration during delivery
CPT/HCPCS: 59025; 59050; 82565; 84450; 84460; 84550; 85025; 86850; 86900; 86901; 99218; J7120; A4216; G0378; J2405

== ENCOUNTER → 2022-01-06 | Outpatient (CLI) | payer BC, SELFPAY ==
[2022-01-13 15:18] LABS: HPV APTIMA, High Risk Negative (Negative)
== END | disposition home or self-care (01) ==
LOC: LABSPEC 16:28
PROVIDERS: PCP Family Medicine; Visit Provider Obstetrics & Gynecology
DX: Z12.4 Encounter for screening for malignant neoplasm of cervix (principal)
CPT/HCPCS: 87624; 88175; G0145